=== PATIENT | female | born 1955 | race Caucasian/White ===

== ENCOUNTER → 2023-06-18 06:27 | Day surgery (SDC) | payer BC, SELFPAY | LOC: GI 06:27 | PROVIDERS: ATTENDING PHYSICIAN Internal Medicine Gastroenterology | DX: K50.00 Crohn's disease of small intestine without complications (principal); Z98.0 Intestinal bypass and anastomosis status; K57.30 Diverticulosis of large intestine without perforation or abscess without bleeding | CPT/HCPCS: 45380; 45382; 88305 ==

== ENCOUNTER → 2023-08-09 10:25 | Outpatient (REF) | payer BC, SELFPAY | LOC: MRI 3T 10:25 | PROVIDERS: ATTENDING PHYSICIAN Nurse Practitioner Family; FAMILY PHYSICIAN Internal Medicine | DX: K50.018 Crohn's disease of small intestine with other complication (principal) | CPT/HCPCS: 72197; 74183; A9575 ==

== ENCOUNTER → 2024-07-03 10:08 | Outpatient (REF) | payer BC, SELFPAY | LOC: RAD 10:08 | PROVIDERS: ATTENDING PHYSICIAN Internal Medicine Gastroenterology; FAMILY PHYSICIAN Internal Medicine | DX: R14.0 Abdominal distension (gaseous) (principal) | CPT/HCPCS: 74018 ==

== ENCOUNTER 2024-07-08 13:06 | Inpatient (IN) | payer BC, SELFPAY ==
[2024-07-08] VITALS (10 sets, daily range): BP systolic 114–149; BP diastolic 60–112; BMI 19.1
--- NOTE | 2024-07-08 08:32 | EDRN ---
Assumed care of pt at this time.
--- NOTE | 2024-07-08 08:57 | EDRN ---
Bathroom set up for stool and urine specs at this time.
[2024-07-08 09:12] LABS: % Basophils 0.3 % (0-2); % Eosinophils 0.1 % (0-6); % Immature Granulocytes 0.4 % (0-0.5); % Lymphocytes 4.9 % (20.5-51.1); % Monocytes 4.4 % (1.7-9.3); % Neutrophils 89.9 % (42.2-75.2); ALT (SGPT) 26 U/L (0-35); AST (SGOT) 37 U/L (14-36); Absolute Basophils 0.1 10^3/uL (0-0.2); Absolute Immature Granulocytes 0.1 10^3/uL (0-0.05); Absolute Lymphocytes 0.8 10^3/uL (1.2-3.4); Absolute Monocytes 0.8 10^3/uL (0.1-0.6); Absolute Neutrophils 15.4 10^3/uL (1.4-6.5); Albumin 4.3 g/dl (3.5-5.0); Alkaline Phosphatase 74 U/L (38-126); Blood Urea Nitrogen 23 mg/dl (7-17); Calcium 10.6 mg/dl (8.4-10.2); Carbon Dioxide 33 mmol/L (22-30); Chloride 100 mmol/L (98-107); Estimated Creatinine Clearance 36 ml/min; Glucose 153 mg/dl (70-99); Hematocrit 43.5 % (37.0-47.0); Hemoglobin 15.4 g/dL (12.0-16.0); Lipase 146 U/L (23-300); Mean Corp Hgb Conc. 35.4 g/dL (33.0-37.0); Mean Corpuscular Hgb 31.5 pg (27.0-31.0); Mean Platelet Volume 9.5 fL (7.4-10.4); Nucleated Red Blood Cells % 0 %; Platelet Count 320 10^3/uL (130-400); Red Blood Cell Count 4.89 10^6/uL (4.20-5.40); Red Cell Dist. Width 12.7 % (11.5-14.5); Sodium 143 mmol/L (135-145); Total Bilirubin 0.9 mg/dl (0.2-1.3); White Blood Cell Count 17.1 10^3/uL (4.8-10.8); eGFR 55.07
--- NOTE | 2024-07-08 09:32 | EDRN ---
Dr. Gray in room w/ pt at this time.
[2024-07-08] MEDS: NSS 1000 IV ×4 (09:44→23:03)
[2024-07-08] MEDS: MORPHINE SULFATE 4 MG IV (09:44)
[2024-07-08] MEDS: ZOFRAN 4 MG IV ×2 (09:44→15:54)
--- NOTE | 2024-07-08 09:54 | ED.GENMED ---
History of Present Illness
General
Chief Complaint: Abdominal Symptoms
Source: patient and family (Sister)
Exam Limitations: none
Time Seen by Provider: 07/08/24 09:05
Nursing documentation reviewed up to this point in time: agreed with
History of Present Illness
History of Present Illness:
68-year-old female with history of Crohn's disease and multiple bowel resections (on mesalamine) who presents to the emergency department for evaluation of abdominal pain with nausea and vomiting, diarrhea. Patient reports onset of symptoms
yesterday afternoon and have been constant and generally worsening since then. She reports a diffuse pain nonlocalized. Pain is consistent. No clear triggering or relieving factors. Associated with nausea and about 6 episodes of nonbloody
nonbilious vomiting. She said she has had some loose stools nonbloody. She says that she has had similar symptoms with bowel obstructions in the past but symptoms seem somewhat different today because they typically would improve after
vomiting�her symptoms have been consistent despite vomiting.
Past History
Past History
ED Past Medical History: Hypothyroidism and Other
ED Past Surgical History: Appendectomy, Bowel resection, Cholecystectomy and Other
Social History
Tobacco: Non-smoker
Alcohol: None
Personal:
Living: with family
Review of Systems
Review of Systems
All Other Systems: ROS reviewed and negative except as documented in HPI and ROS
Constitutional: Denies fever
Respiratory: Denies trouble breathing
Cardiac: Denies chest pain
ABD/GI: Reports abdominal pain, nausea, vomiting and diarrhea; Denies bloody stools
: Denies dysuria, frequency or bleeding
Musculoskeletal: Denies neck pain or back pain
Neurological: Denies headache
Phy Exam
Physical Exam
Physical Exam:
General: Awake, alert, appears uncomfortable
Head: Normocephalic, atraumatic
Eyes: Conjunctiva normal, sclera anicteric
Throat: Airway intact, handling secretions
Neck: Trachea midline, supple without meningismus
Lungs: Clear to auscultation bilaterally, no wheezing, rales, rhonchi
Heart: Tachycardia with regular rhythm, no murmurs, gallops, or rubs
Abd: Soft, mildly distended, diffuse tenderness to palpation
Neuro: No gross deficits
Skin: no rash in area of concern
Extremities: Warm and well-perfused
Scores
Heart Failure Risk
Heart Failure Risk Score: Not Applicable
Heart Score for Chest Pain Patients
STEMI patient?: Not applicable
Withdrawal Assessment of Alcohol
Withdrawal Assessment Completed?: Not applicable
Course
Orders/Labs/Results
Orders:
Orders
07/08/24 08:42
IV Insert/Care/Rem.- Treatment PRN
07/08/24 08:44
Complete Blood Count/With Diff Urgent
Comprehensive Metabolic Panel Urgent
Lipase Urgent
07/08/24 09:36
0.9% Sodium Chloride 1000 ml [Nss] 1,000 ml IV BOLUS
Morphine Sulfate 4 mg IV NOW STA
Ondansetron Injectable [Zofran] 4 mg IV NOW STA
07/08/24 09:37
Electrocardiogram (*1) Urgent
Reason for Study: Abdominal Pain
CT Abd/pelvis W Iv Cont Urgent
Comment:
Reason For Exam: abd pain, nausea, vomiting
EKG- Treatment ONCE
07/08/24 12:03
Urinalysis Reflex To Culture Urgent
Date Specimen was Collected: 07/08/24
Time Specimen was Collected: 11:52
Abnormal Lab Results
07/08/24
08:44
WBC 17.1 H 10^3/uL
(4.8-10.8)
MCH 31.5 H pg
(27.0-31.0)
Abs Immat Gran (auto) 0.1 H 10^3/uL
(0-0.05)
Absolute Neuts (auto) 15.4 H 10^3/uL
(1.4-6.5)
Absolute Lymphs (auto) 0.8 L 10^3/uL
(1.2-3.4)
Absolute Monos (auto) 0.8 H 10^3/uL
(0.1-0.6)
Neutrophils % 89.9 H %
(42.2-75.2)
Lymphocytes % 4.9 L %
(20.5-51.1)
Carbon Dioxide 33 H mmol/L
(22-30)
BUN 23 H mg/dl
(7-17)
Creatinine 1.1 H mg/dL
(0.6-1.0)
Glucose 153 H mg/dl
(70-99)
Calcium 10.6 H mg/dl
(8.4-10.2)
AST 37 H U/L
(14-36)
07/08/24 08:44
07/08/24 08:44
Vital Signs
Initial and Last Documented VS:
Initial Vital Signs
Temp Pulse Resp BP Pulse Ox
36.6 C 113 22 144/112 98
07/08/24 07:37 07/08/24 07:37 07/08/24 07:37 07/08/24 07:37 07/08/24 07:37
Last Documented Vital Signs
Temp Pulse Resp BP Pulse Ox
36.6 C 89 16 137/72 97
07/08/24 07:37 07/08/24 12:00 07/08/24 12:00 07/08/24 12:00 07/08/24 12:00
MDM/Problems Addressed
Differential Diagnosis Includes:
Crohn's flare, bowel obstruction, bowel perforation, cholelithiasis/cholecystitis, pancreatitis
MDM/Problems Addressed:
68-year-old female with history of Crohn's disease and multiple bowel surgeries presents for evaluation of abdominal pain associate with nausea/vomiting/diarrhea. She is tachycardic, hypertensive but otherwise normal vitals. Physical exam as
above. Will plan to place an IV check labs including a CBC and a CMP, lipase. Will check urinalysis. EKG for QTc monitoring. Will treat with pain medication and antiemetic. Will send for a CT abdomen pelvis. Provide IV fluids. Monitor closely
reassess after the above.
Labs reviewed: CBC does show leukocytosis to 17.1. CMP shows BRYANT with a creatinine of 1.1. CT is pending. Clinical reassessment after pain medication and antiemetic patient reports improvement in her symptoms. Her heart rate has improved with
fluids.
CT shows findings concerning for small bowel obstruction. Clinical reassessment patient is feeling much better after fluids and pain control. She does not wish to have NG tube now because she feels better�she says that she has had partial
obstructions in the past that improved with bowel rest. Will hold off for now but I explained that if her symptoms worsen she will require nasogastric tube placement. Will admit for continued management. Discussed case with hospitalist.
Chronic conditions affecting care:
Crohn's disease
Acute Exacerbation and/or Progression of Chronic Illness:
Acutely hypertensive likely pain related will treat pain but no indication for emergent antihypertensives at this point
Acute Exacerbation and/or Progression of Chronic Illness: HTN
*Radiology
Radiology exam reviewed: radiology read reviewed
*Pulse Oximetry
Patient hypoxic: no
*Critical Care Note
Total Time (30-74mins, 75-104mins- exclusive of procedures): Not Applicable
Data Reviewed
Review of Other/Old Records Reveals: Labs and Records
Source: patient, records and family
Patient Management
Discussion with other providers: Hospitalist (Discussed with hospitalist)
Escalation/DeEscalation of care consider admission/obs:
Admission indicated
ED Attending Note
-
Portions of this chart may have been created with voice recognition software.� Occasional wrong word or��sound alike� substitutions may have occurred due to the inherent limitations of voice recognition software.
Discharge Plan
Departure
Patient Disposition: Admit
Date of Disposition: 07/08/24
Time of Disposition: 12:20
Admit to doctor: Candace
Presentation/result/management discussed w/ accepting MD/DO: Hospitalist
Discharge Problem:
Small bowel obstruction, BRYANT (acute kidney injury)
Prescriptions:
No Action
latanoprost 1 DROP drops
1 drp BOTH EYES HS
loteprednol etabonate [Alrex] 1 DROP drops,suspension
1 drp BOTH EYES DAILY
levothyroxine 75 MCG tablet
75 mcg PO HS
ascorbic acid (vitamin C) [Vitamin C] 500 MG tablet
500 mg PO DAILY
docosahexaenoic acid-epa 1 CAP capsule
1 cap PO DAILY
zinc sulfate 220 MG capsule
220 mg PO DAILY
cholecalciferol (vitamin D3) 1,000 UNITS tablet
1,000 units PO DAILY
multivitamin with folic acid [Tab-A-Jairo] 1 TABLET tablet
1 tab PO DAILY
levofloxacin 500 MG tablet
500 mg PO DAILY Qty: 9 0RF
metronidazole 500 MG tablet
500 mg PO TID Qty: 29 0RF
ondansetron 4 MG tablet,disintegrating
4 mg PO Q8HPRN PRN (Reason: nausea/vomiting) Qty: 5 0RF
Referrals:
Carole Lopez MD [Family Provider] -
Interventions
Interventions:
*Risk Screen - Suicide Last Done: 07/08/24 08:35
*General Assessment Last Done: 07/08/24 08:34
*Neglect/Abuse Screening Last Done: 07/08/24 08:35
*ED- Fall Risk Assessment Last Done: 07/08/24 08:34
*ED COVID-19 Vaccine History Last Done: 07/08/24 08:34
OC-Jaczpq-Eeytqpbjrk Assessment Last Done: 07/08/24 08:45
Discharge Date and Time
Print Language: FILIPINO
--- NOTE | 2024-07-08 11:35 | EDRN ---
Pt OOB to BR to void and provide urine spec at this time.
[2024-07-08 12:21] LABS: Urine Albumin 1+ (Neg - Trace); Urine Bilirubin Negative (Negative); Urine Character Slightly Cloudy (Clear); Urine Color Yellow; Urine Glucose Negative (Negative); Urine Ketone Negative (Negative); Urine Leukocyte Negative (Negative); Urine Nitrite Negative (Negative); Urine Occult Blood Negative (Negative); Urine Urobilinogen Negative (Neg - 1+)
--- NOTE | 2024-07-08 12:28 | HPS.HSE ---
Family Physician
-
Family Physician: Carole Lopez
Chief Complaint
-
abd pain
History of Present Illness
68-year-old female with history of Crohn's disease and multiple bowel resections who complains of abdominal pain with nausea, vomiting and diarrhea starting yesterday afternoon of 07/07/2024. She reports the pain has been constant and worse since
then. She feels that this is similar to her prior bowel obstructions. In the ER she was noted to have a small bowel obstruction on CT of her abdomen. She refused NG placement at current time. She denies headache, sore throat, fever, chills,
chest pain, palpitations, cough, shortness of breath, urinary symptoms, rash. She has past medical history of Crohn's disease on mesalamine, multiple bowel resections x 4 greater than 20 years ago, history of ileostomy 30 years ago secondary to
Crohn's,, bowel obstructions 6 to 10/year, hypothyroidism.
Medical History
Past Medical History
Past Medical History: Reports Other
Additional Past Medical History:
Crohn's disease on mesalamine
multiple bowel resections x 4 greater than 20 years ago
history of ileostomy 30 years ago secondary to Crohn's
bowel obstructions 6 to 10/year
hypothyroidism.
Past Surgical History: Reports Other
Additional Past Surgical History:
History multiple bowel obstructions�bowel resections X4 >20 years ago
Right lower quadrant ileostomy 30 years ago due to Crohn's disease
Cholecystectomy
Appendectomy secondary to rupture
section�linear x 1 emergent, 2 transverse
Social History
Tobacco: Non-smoker
Alcohol: None
Drug: None
Personal:
Living: With Family ( Goldy)
Employment: Retired
Family History
Family History: Other (Patient's nephew history of Crohn's, patient's 2 cousins paternal side Crohn's)
Allergies / Home Medications
Allergies reflects when Allergies were last updated in [facility].
Home Medications with original date entered in [facility]
Allergy/Medication List:
Allergies
Allergy/AdvReac Type Severity Reaction Status Date / Time
Penicillins Allergy Hives Verified 07/08/24 07:43
Home Medications
ascorbic acid (vitamin C) 500 mg tablet (Vitamin C) 500 mg PO DAILY 01/20/21
cholecalciferol (vitamin D3) 25 mcg (1,000 unit) tablet 1,000 units PO DAILY 01/20/21
latanoprost 0.005 % eye drops 1 drp BOTH EYES HS 01/20/21
loteprednol etabonate 0.2 % eye drops,suspension (Alrex) 1 drp BOTH EYES MOFR 01/20/21
zinc sulfate 50 mg zinc (220 mg) capsule 220 mg PO DAILY 01/20/21
qpoonym-vyqpusczhkdbn-cjzfcntr 250 mg-250 mg-65 mg tablet (Excedrin Migraine) 2 tab PO DAILYPRN PRN migraine 07/08/24
hydrocortisone acetate 25 mg rectal suppository 25 mg OK DAILY 07/08/24
levothyroxine 100 mcg tablet 100 mcg PO HS 07/08/24
mesalamine 1.2 gram tablet,delayed release 1.2 g PO AC 07/08/24
naproxen sodium 220 mg capsule (Aleve) 440 mg PO DAILYPRN PRN mild pain 07/08/24
omega 3-vok-euf-fish oil 1,000 mg (120 mg-180 mg) capsule (Fish Oil) 1 cap PO DAILY 07/08/24
therapeutic multivitamin 1 tab PO DAILY 07/08/24
Review of Systems
-
History Source: Patient and Family (Sister at bedside)
A 12 point ROS was completed and negative except as noted: Yes
Constitutional: Denies Fever or Chills
EENT: Denies Sore Throat or Runny Nose
Respiratory: Denies Cough or Trouble Breathing
Abdomen/GI: Reports Abdominal Pain (Right lower quadrant), Nausea, Vomiting and Diarrhea; Denies Constipated, Bloody Stools or Black Stools
: Denies Dysuria, Frequency, Flank Pain, Incontinence, Difficulty Voiding or Urgency
Musculoskeletal: Denies Joint Pain or Edema
Skin: Denies Itching or Rash
Neurological: Denies Dizzy, Headache or Weakness
Endocrine: Reports No Symptoms
Hematologic/Lymphatic: Reports No Symptoms
Psych: Reports Calm
Physical Exam
Vital Signs
Vital Signs
Temp Pulse Resp BP Pulse Ox
97.8 F 89 16 137/72 97
07/08/24 07:37 07/08/24 12:00 07/08/24 12:00 07/08/24 12:00 07/08/24 12:00
Physical Exam
General: Conversant and Pain; No Fever or Chills
HEENT: NormoCephalic, Anicteric, [place] Conjunctivae, No Ptosis and Other (Dry oral mucosa)
Respiratory: Clear; No Wheezes, Rales or Rhonchi
Cardiac: S1/S2 and Regular Rhythm; No Murmur, Rub, Gallop or Peripheral Edema
GI: Soft, Non Distended, Tender (Right lower quadrant abdomen), No Hepatosplenomegaly and Other (Hypoactive bowel sounds right sided abdomen, normal bowel sounds left side abdomen)
Rectal: Deferred by Provider
Genito-urinary: Deferred by me
Musculoskeletal: No Clubbing, No Cyanosis and No Edema
Skin: Warm and Dry; No Rash or Jaundice
Neuro: AO x 3, No Motor Deficits, Nonfocal/grossly intact, Cranial Nerves Intact and No Sensory Deficits; No Slurred Speech, Facial Droop, Tremors or Sedated
Psych: Calm
Laboratory Results
-
07/08/24 08:44
07/08/24 08:44
Laboratory Results
Total Bilirubin 0.9 mg/dl (0.2-1.3) 07/08/24 08:44
AST 37 U/L (14-36) H 07/08/24 08:44
ALT 26 U/L (0-35) 07/08/24 08:44
Alkaline Phosphatase 74 U/L (38-126) 07/08/24 08:44
Lipase 146 U/L (23-300) 07/08/24 08:44
Data Reviewed
-
CT Scan: Report Reviewed by me
Lab Data: Labs Reviewed by me
Impression/Plan
-
Impression/plan:
Admit to [facility]
#Acute small bowel obstruction
# Hx multiple bowel obstructions requiring bowel resections
WBC 17.1 with left shift, afebrile 97.8, HR 89, 137/72
- N.p.o.
- IV NSS 1 L given in ER, continue IV NSS 125 /hr
- IV Zofran
- If persistent vomiting would reapproach NG tube placement as patient refused initially
- Consult general surgery
-Follow CBC, CMP
CT abdomen pelvis with IV contrast:
1. There are multiple dilated predominantly fluid-filled small bowel loops, which extend to the ileocolonic anastomosis in the right upper quadrant. Findings would suggest small bowel obstruction, although there does not
appear to be a high-grade narrowing at the ileocolonic anastomosis, and there is mild distention of fluid-filled right colon. The obstruction could be partially functional due to wall thickening and inflammation in this
patient with a history of Crohn's disease.
2. There is some fluid in the mesentery and within the pelvis, suggesting transudation of fluid.
3. As warranted, consideration could be given to administration of GI luminal contrast agent to assess for progression through the small bowel.
4. No evidence of free intraperitoneal air.
5. Status post cholecystectomy with no evidence for biliary ductal dilation.
# Hx of Crohn's disease
#History of right lower quadrant ileostomy 30 years ago
Patient on mesalamine
#Hypothyroidism
#CKD with 3B
Creat 1.1 prior baseline 0.9 in 2020
DVT prophylaxis
Subcu heparin
Full code
--- NOTE | 2024-07-08 12:40 | EDRN ---
Fady DIAMOND in w/ pt at this time.
--- NOTE | 2024-07-08 12:40 | W.PN.UPDATE ---
Update Note
Progress Note Update
This note serves as an addendum to the H&P by computer technician SANTIAGO
Coni ROSELYN
HPI
68F non smoker HX Crohn's disease and multiple bowel resections (on mesalamine) seen at ER
- evaluation of abdominal pain with nausea and vomiting, diarrhea
- onset of symptoms yesterday afternoon and have been constant and generally worsening since then.
- non localized diffuse pain and consistent.
- No clear triggering or relieving factors.
- Associated with nausea and about 6 episodes of nonbloody nonbilious vomiting.
- has had some loose stools nonbloody.
- similar symptoms with bowel obstructions in the past
PHX: see above
Vital Signs
Temp Pulse Resp BP Pulse Ox
97.8 F 89 16 137/72 97
07/08/24 07:37 07/08/24 12:00 07/08/24 12:00 07/08/24 12:00 07/08/24 12:00
PE
Gen: appears uncomfortable
HEENT: anicteric
Neck: supple
Lungs: CTA
Cor: RRR S1 S2
Abdomen: Soft, mildly distended, diffuse tenderness
CONTINUOUS YARN DYEING MACHINE OPERATOR: AAO3, NFND
MS: no edema
Psych: Nl affect
Data
WCC 17
CO2 33
BUN 23
Cr 1.1
eGFR 55
BG 153
Ca ++ 10.6
Pending complete UA
CT AP W Iv Cont
- multiple dilated predominantly fluid-filled small bowel loops, which extend to the ileocolonic anastomosis in the right upper quadrant.
- Findings would suggest small bowel obstruction, although there does not appear to be a high-grade narrowing at the ileocolonic anastomosis, and there is mild distention of fluid-filled right colon.
- The obstruction could be partially functional due to wall thickening and inflammation in this patient with a history of Crohn's disease.
- There is some fluid in the mesentery and within the pelvis, suggesting transudation of fluid.
-As warranted, consideration could be given to administration of GI luminal contrast agent to assess for progression through the small bowel.
-No evidence of free intraperitoneal air.
Status post cholecystectomy with no evidence for biliary ductal dilation.
No prior hospitalist admission:
ASSESSMENT & PLAN
Pending Rx reconciliation
Partial SBO pw acute N/V and abdominal pain
Pre renal BRYANT due to dehydration due to emesis s/p 1 L of NS at ER
- No evidence of free intraperitoneal air.
- HX Crohn dz
- similar to prior HX bowel obstruction
- symptoms were really well-controlled after a dose of morphine and Zofran
- was resistant to NG tube for above reasons
- if her symptoms are worsening she would require NG but held off for now.
- NPO except ice chips and IVF NS 120/H
- PRN narcotic analgesia and PRN Anti emetics
- GS consult
HX Crohn dz
- Hold mesalamine for now
Hypothyroid
- Hold LT4
DVT Px: SQH
Full code
IP MS
[2024-07-08 12:41] LABS: Urine Bacteria Few (Negative); Urine Red Blood Cell None Seen /HPF (0-2); Urine Squamous Cell 0-2 /LPF (Few)
[2024-07-08 12:42] LABS: Urine Amorphous Seen
--- NOTE | 2024-07-08 12:43 | EDRN ---
rf test technician in room w/ pt at this time.
--- NOTE | 2024-07-08 12:45 | EDRN ---
senior technical support engineer in room w/pt at this time doing med rec.
[2024-07-08 15:07] LABS: C-Reactive Protein < 5.00 mg/L (0.0-10.00)
[2024-07-08] MEDS: DILAUDID 1 MG IV (15:54)
--- NOTE | 2024-07-08 16:25 | CON.GS ---
Consultation
-
Date/Time Consultation Performed: 07/08/24 1550
Medical History
-
Chief Complaint: Abd pain with n/v
History of Present Illness:
Ms Wynn is a 68 yo female with a h/o Crohn's disease with prior bowel resections x4, recurrent sbo's, appi, devorah, c-sections x3, and partial thyroidectomy who presents with worsening abdominal pain with nausea and vomiting. She has been following
with Dr. De Jesus as an outpatient for Crohn's management and notes that over the last 6 months she has had persistent RLQ pain and is currently on mesalamine. She notes that her RLQ pain acutely worsened over the last 24-48 hours radiating across
her abdomen with nausea and vomiting which developed overnight causing her to present for evaluation. She had relief of pain after receiving analgesics in the ED but notes it is gradually coming back. Intermittent nausea is still present. She denies
fevers or chills. She denies urinary changes. Her last BM was and she notes that she has not been passing flatus. On exam, she has very minimal distention with tenderness to the RLQ.
Past Medical History
Past Medical History: Hypothyroidism and Other (Crohn's)
Past Surgical History: Appendectomy, Bowel Resection (bowel resection x4 for crohn's, including ileocolic (at [place])), Cholecystectomy, (x3) and Other (partial thyroidectomy. Colonoscopy 05/2023 with patent wyac-oj-yehj ileo-colonic
anastomosis, normal colon other than diverticulosis)
Social History
Tobacco: Non-Smoker
Alcohol: None
Personal:
Living: With Family
Family History
Family History: Cancer (GF colon ca) and Other (Crohn's paternal aunt, cousins x2 and nephew)
Allergies / Home Medications
Allergy/AdvReac Type Severity Reaction Status Date / Time
Penicillins Allergy Hives Verified 07/08/24 07:43
�Medication �Instructions �Recorded �Confirmed �Type
ascorbic acid (vitamin C) 500 mg 500 mg PO DAILY 01/20/21 07/08/24 History
tablet (Vitamin C)
cholecalciferol (vitamin D3) 25 1,000 units PO DAILY 01/20/21 07/08/24 History
mcg (1,000 unit) tablet
latanoprost 0.005 % eye drops 1 drp BOTH EYES HS 01/20/21 07/08/24 History
loteprednol etabonate 0.2 % eye 1 drp BOTH EYES MOFR 01/20/21 07/08/24 History
drops,suspension (Alrex)
zinc sulfate 50 mg zinc (220 mg) 220 mg PO DAILY 01/20/21 07/08/24 History
capsule
uwpsysj-esarksknvbbla-lokihdre 250 2 tab PO DAILYPRN PRN migraine 07/08/24 07/08/24 History
mg-250 mg-65 mg tablet (Excedrin
Migraine)
hydrocortisone acetate 25 mg 25 mg [place] DAILY 07/08/24 07/08/24 History
rectal suppository
levothyroxine 100 mcg tablet 100 mcg PO HS 07/08/24 07/08/24 History
mesalamine 1.2 gram tablet,delayed 1.2 g PO AC 07/08/24 07/08/24 History
release
naproxen sodium 220 mg capsule 440 mg PO DAILYPRN PRN mild pain 07/08/24 07/08/24 History
(Aleve)
omega 6-sfq-rit-fish oil 1,000 mg 1 cap PO DAILY 07/08/24 07/08/24 History
(120 mg-180 mg) capsule (Fish Oil)
therapeutic multivitamin 1 tab PO DAILY 07/08/24 07/08/24 History
Review of Systems
-
History Source: Patient and Family
All other systems: Negative unless noted
A 10 point review of systems was completed, and was negative except as per HPI.
Physical Exam
Vital Signs
Temp Pulse Resp BP Pulse Ox
99.1 F 75 16 114/60 97
07/08/24 15:40 07/08/24 15:40 07/08/24 15:40 07/08/24 15:40 07/08/24 15:40
07/07/24 07/08/24 07/09/24
06:59 06:59 06:59
Actual Weight 45.9 kg
Body Mass Index (BMI) 19.1
Lab Results
07/08/24 08:44
07/08/24 08:44
WBC 17.1 10^3/uL (4.8-10.8) H 07/08/24 08:44
Hgb 15.4 g/dL (12.0-16.0) 07/08/24 08:44
Hct 43.5 % (37.0-47.0) 07/08/24 08:44
Plt Count 320 10^3/uL (130-400) 07/08/24 08:44
Abs Immat Gran (auto) 0.1 10^3/uL (0-0.05) H 07/08/24 08:44
Neutrophils % 89.9 % (42.2-75.2) H 07/08/24 08:44
Data Reviewed
-
CT Scan: Image Personally Visualized and interpreted, Report Reviewed by me, Discussed with Physician, Discussed with Patient and Discussed with Family
MRI: Report Reviewed by me (07/2023: normal MR enterography)
Medical Tests (Nuc Med, Echo etc): Image Personally Visualized and interpreted, Report Reviewed by me, Discussed with Physician and Discussed with Patient
Labs: Labs Reviewed by me, Discussed with Physician, Discussed with Patient and Discussed with Family
Old Records: Reviewed
Assessment / Plan
-
68 yo female with h/o Crohn's s/p bowel resection x4 (including ileocolic resection) who has had ongoing RLQ pain x6 months with recent worsening and new onset n/v. Not passing flatus or stools since . CT imaging reviewed and consistent with
SBO secondary to inflammation (suspect Crohn's flare) vs Crohn's stricture at the distal ileum, the prior ileocolic anastomosis appears patent. Afebrile with stable vitals. Leukocytosis present.
Discussed NGT placement with patient, would recommend given ongoing nausea; however, she would like to hold off for now. Willing to reconsider if she begins vomiting again.
--Will add on CRP level to today's labs and trend
--Consult placed to gastroenterology to follow with us
--Keep NPO for bowel rest, NGT if vomiting recurs
--Analgesics/Antiemetics prn
--IVF while NPO
No plans for emergent surgery at this time, but may require if no improvement with medical management
[2024-07-08] MEDS: ASACOL, DELZICOL DR PO (17:05)
[2024-07-08] MEDS: HEPARIN 5000 UNITS SC (20:19)
[2024-07-08] MEDS: SYNTHROID 100 MCG PO (21:36)
[2024-07-08] MEDS: XALATAN OPHTHALMIC SOLUTION 1 DROP BOTH EYES (21:36)
[2024-07-09 06:00] VITALS: BMI 19.1
[2024-07-09 06:19] LABS: % Basophils 0.6 % (0-2); % Eosinophils 2.6 % (0-6); % Immature Granulocytes 0.2 % (0-0.5); % Lymphocytes 23.9 % (20.5-51.1); % Monocytes 5.1 % (1.7-9.3); % Neutrophils 67.6 % (42.2-75.2); Absolute Eosinophils 0.2 10^3/uL (0-0.7); Absolute Lymphocytes 1.6 10^3/uL (1.2-3.4); Absolute Monocytes 0.3 10^3/uL (0.1-0.6); Absolute Neutrophils 4.4 10^3/uL (1.4-6.5); Hematocrit 31.4 % (37.0-47.0); Hemoglobin 10.3 g/dL (12.0-16.0); Mean Corp Hgb Conc. 32.8 g/dL (33.0-37.0); Mean Corpuscular Hgb 30.3 pg (27.0-31.0); Mean Corpuscular Volume 92.4 fL (81.0-99.0); Mean Platelet Volume 9.8 fL (7.4-10.4); Nucleated Red Blood Cells % 0 %; Platelet Count 201 10^3/uL (130-400); White Blood Cell Count 6.5 10^3/uL (4.8-10.8)
[2024-07-09 06:38] LABS: ALT (SGPT) 16 U/L (0-35); AST (SGOT) 27 U/L (14-36); Albumin 2.7 g/dl (3.5-5.0); Alkaline Phosphatase 47 U/L (38-126); Blood Urea Nitrogen 19 mg/dl (7-17); Calcium 8.3 mg/dl (8.4-10.2); Carbon Dioxide 29 mmol/L (22-30); Chloride 110 mmol/L (98-107); Estimated Creatinine Clearance 40 ml/min; Glucose 86 mg/dl (70-99); Potassium 3.8 mmol/L (3.5-5.1); Sodium 143 mmol/L (135-145); Total Bilirubin 0.9 mg/dl (0.2-1.3); Total Protein 4.7 g/dl (6.3-8.2); eGFR > 60.00
[2024-07-09 06:43] LABS: Prealbumin (Transthyretin) 15.2 mg/dl (17.6-36.0)
[2024-07-09 07:05] VITALS: BP 123/78
[2024-07-09] MEDS: ASACOL, DELZICOL DR PO (07:56)
[2024-07-09] MEDS: NSS 1000 IV ×2 (07:57→16:42)
[2024-07-09] MEDS: HEPARIN 5000 UNITS SC ×2 (07:58→19:50)
--- NOTE | 2024-07-09 08:07 | W.PN.HOSP.TC ---
Today's Communication/Plan
-
See plan
Assessment / Plan
Assessment / Plan
Physical Exam
General: Not in acute distress
HEENT: Normocephalic
Respiratory: Clear to Auscultation Bilaterally
Cardiac: S1/S2 and Regular Rhythm
GI: Soft, Non Distended, Tender (Right lower quadrant), positive bowel sounds
Musculoskeletal: No Cyanosis and No Edema
Skin: Warm and Dry
Neuro: AAO x 3, Nonfocal/grossly intact
Psych: Calm
Assessment/Plan
68-year-old female with history of Crohn's disease (takes Meselamine and sees Dr. Dobbs outpatient) and multiple bowel resections who reported progressive abdominal pain with nausea, vomiting and diarrhea starting the day before presentation. In
the ER she was noted to have a small bowel obstruction on CT of her abdomen. She refused NG placement at current time. She denies headache, sore throat, fever, chills, chest pain, palpitations, cough, shortness of breath, urinary symptoms, rash.
She has past medical history of Crohn's disease on mesalamine, multiple bowel resections x 4 greater than 20 years ago, history of ileostomy 30 years ago secondary to Crohn's,, bowel obstructions 6 to 10/year, hypothyroidism.
#Acute small bowel obstruction associated with narrowing/thickening proximal to the ileocolic anastomosis on CT ?and adhesions?
#History of multiple bowel obstructions requiring bowel resections
- CT Abdomen Pelvis noted with multiple dilated predominantly fluid-filled small bowel loops
- Okay to advance to clear liquids as per GI and surgery
- Eventually, when diet is advanced, she will need to adhere to a strict low residue diet as an outpatient
- IV Fluids
- If persistent vomiting then consider NG tube placement as patient refused initially
- Consult general surgery and given patient has Crohns Disease, GI as well
- Pain control
#Crohn disease
#History of right lower quadrant ileostomy 30 years ago
- Continue Mesalamine
- Continue home rectal Hydrocortisone
#Hypothyroidism
- Resume home Levothyroxine
#CKD with 3B
-Creat 1.1 prior baseline 0.9 in 2020
-Monitor BMP
DVT Prophylaxis: Heparin Subq
Code Status: Full code
Anticipated Discharge: 24 - 48 hours
Subjective/Interval History
-
Date of Service: July 09, 2024
Patient was seen and examined. She reported feeling okay, no nausea or vomiting, no significant abdominal pain which has now improved.
Objective Data
-
Labs:
Laboratory Results
07/09/24
04:41
WBC 6.5
Hgb 10.3 L D
Hct 31.4 L
Plt Count 201 D
Sodium 143
Potassium 3.8
Chloride 110 H
Carbon Dioxide 29
BUN 19 H
Creatinine 1.0
Glucose 86
Calcium 8.3 L D
Total Bilirubin 0.9
AST 27
ALT 16
Alkaline Phosphatase 47
Vital Signs:
Vital Signs
Temp Pulse Resp BP Pulse Ox
97.9 F 76 16 123/78 97
07/09/24 07:05 07/09/24 07:05 07/09/24 07:05 07/09/24 07:05 07/09/24 07:05
I&O
07/08/24 07/09/24 07/10/24
06:59 06:59 06:59
Intake Total 1500 / 1500
Balance 1500 / 1500
--- NOTE | 2024-07-09 08:17 | CON.GI ---
Consultation
-
Date/Time Consultation Performed:
Performing Provider: Adin Milton MD
Reason for Consultation: abdominal pain
Medical History
Chief Complaint / HPI
Chief Complaint: abdominal pain, vomiting
History of Present Illness:
The patient is a 68-year-old female past medical history as noted with abdominal pain and vomiting. She has had multiple issues with partial small bowel obstructions over the years, thought to be secondary to adhesions after multiple surgeries in
the . She has had multiple colonoscopies and MR enterography's have not shown any significant inflammatory bowel disease, and her anastomosis is always been widely patent without signs of recurrence of Crohn's disease. More recently she has
been having some increasing similar symptoms, and yesterday in the last couple days had increasing significant bloating with vomiting. After excessive vomiting yesterday she is feeling much better today, with no further vomiting, is passing some
flatus, no significant abdominal pain, fever or chills.
Past Medical History
Past Medical History: Other (Crohn's ileitis, small bowel obstruction status post resection x 3, arthritis, thyroid cancer status post resection, migraines, B12 deficiency, hypothyroid)
Past Surgical History: Other (Partial thyroidectomy, , small bowel resection x 4 in 1979, appendectomy, cataract removal.)
Social History
Tobacco: Non-Smoker
Alcohol: None
Family History
Family History: Reviewed & Not Pertinent
Allergies / Home Medications
Allergy/AdvReac Type Severity Reaction Status Date / Time
Penicillins Allergy Hives Verified 07/08/24 07:43
�Medication �Instructions �Recorded
ascorbic acid (vitamin C) 500 mg 500 mg PO DAILY 01/20/21
tablet (Vitamin C)
cholecalciferol (vitamin D3) 25 1,000 units PO DAILY 01/20/21
mcg (1,000 unit) tablet
latanoprost 0.005 % eye drops 1 drp BOTH EYES HS 01/20/21
loteprednol etabonate 0.2 % eye 1 drp BOTH EYES MOFR 01/20/21
drops,suspension (Alrex)
zinc sulfate 50 mg zinc (220 mg) 220 mg PO DAILY 01/20/21
capsule
uftazyi-ayjdjebgxdhoa-qoyimmyl 250 2 tab PO DAILYPRN PRN migraine 07/08/24
mg-250 mg-65 mg tablet (Excedrin
Migraine)
hydrocortisone acetate 25 mg 25 mg MO DAILY 07/08/24
rectal suppository
levothyroxine 100 mcg tablet 100 mcg PO HS 07/08/24
mesalamine 1.2 gram tablet,delayed 1.2 g PO AC 07/08/24
release
naproxen sodium 220 mg capsule 440 mg PO DAILYPRN PRN mild pain 07/08/24
(Aleve)
omega 0-rqf-xdj-fish oil 1,000 mg 1 cap PO DAILY 07/08/24
(120 mg-180 mg) capsule (Fish Oil)
therapeutic multivitamin 1 tab PO DAILY 07/08/24
Review of Systems
-
All other systems: A 12 pt ROS was Negative except as stated above in HPI
Vital Signs
Temp Pulse Resp BP Pulse Ox
97.9 F 76 16 123/78 97
07/09/24 07:05 07/09/24 07:05 07/09/24 07:05 07/09/24 07:05 07/09/24 07:05
Physical Exam
Exam
General: NAD
HEENT: MMM, anicteric, no lymphadenopathy
Heart: Regular, no murmurs
Lungs: CTA bilaterally
Abdomen: Few normal normal bowel sounds, soft, no tenderness, no rebound or guarding, no masses, bruits or ascites, well-healed surgical scars
Extremeties: no edema
Skin: no rashes
Results
WBC 6.5 10^3/uL (4.8-10.8) 07/09/24 04:41
Hgb 10.3 g/dL (12.0-16.0) L D 07/09/24 04:41
Hct 31.4 % (37.0-47.0) L 07/09/24 04:41
MCV 92.4 fL (81.0-99.0) 07/09/24 04:41
Plt Count 201 10^3/uL (130-400) D 07/09/24 04:41
Absolute Neuts (auto) 4.4 10^3/uL (1.4-6.5) 07/09/24 04:41
Sodium 143 mmol/L (135-145) 07/09/24 04:41
Potassium 3.8 mmol/L (3.5-5.1) 07/09/24 04:41
Chloride 110 mmol/L (98-107) H 07/09/24 04:41
Carbon Dioxide 29 mmol/L (22-30) 07/09/24 04:41
BUN 19 mg/dl (7-17) H 07/09/24 04:41
Creatinine 1.0 mg/dL (0.6-1.0) 07/09/24 04:41
Calcium 8.3 mg/dl (8.4-10.2) L D 07/09/24 04:41
Total Bilirubin 0.9 mg/dl (0.2-1.3) 07/09/24 04:41
AST 27 U/L (14-36) 07/09/24 04:41
ALT 16 U/L (0-35) 07/09/24 04:41
Alkaline Phosphatase 47 U/L (38-126) 07/09/24 04:41
Lipase 146 U/L (23-300) 07/08/24 08:44
Diagnostic Image Results:
CT:
IMPRESSION: There are multiple dilated predominantly fluid-filled small bowel loops, which extend to the ileocolonic anastomosis in the right upper quadrant. Findings would suggest small bowel obstruction, although there does not appear to be a
high-grade narrowing at the ileocolonic anastomosis, and there is mild distention of fluid-filled right colon. The obstruction could be partially functional due to wall thickening and inflammation in this patient with a history of Crohn's disease.
There is some fluid in the mesentery and within the pelvis, suggesting transudation of fluid.
As warranted, consideration could be given to administration of GI luminal contrast agent to assess for progression through the small bowel.
No evidence of free intraperitoneal air.
Status post cholecystectomy with no evidence for biliary ductal dilation.
Prior GI Procedures:
EGD:
Colonoscopy:
05/2023:
Findings:
The perianal and digital rectal examinations were normal.
The terminal ileum appeared normal. Biopsies were taken with a cold
forceps for histology.
There was evidence of a prior pwjm-kx-wjvh ileo-colonic anastomosis in
the cecum. This was patent.
The colon (entire examined portion) was significantly tortuous.
Advancing the scope required using manual pressure.
Normal mucosa was found in the entire colon. Biopsies were taken with a
cold forceps for histology. For hemostasis, one hemostatic clip was
successfully placed.
A few small-mouthed diverticula were found in the sigmoid colon and
descending colon.
No additional abnormalities were found on retroflexion.
Assessment / Plan
-
1. Small bowel obstruction: Secondary to adhesions, with no signs of recurrent Crohn's over many years including multiple MR enterography's and colonoscopy including last year with widely patent anastomosis. She is feeling much better today, with
benign exam, return of bowel sounds and flatus and no further vomiting. At this point we will start clear liquids. She has dealt with these obstructive symptoms for many years and knows her symptoms well, we discussed holding on advancing diet
until she is feeling ready, and then would adhere to a strict low residue diet as an outpatient.
-
-
Thank you for consultation and allowing me to participate in the patient's care. Please call the director of retention GI physician during the after hours with any questions or concerns.
--- NOTE | 2024-07-09 10:00 | CM ---
Reviewed the chart notes and spoke with the patient at the bedside. Patient resides with her spouse in a two story home with two steps to enter. The patient reports no DME/VN/SNF in the past. The patient confirmed her pharmacy at this time is
[facility], but will need to switch due to it closing. Patient wants to switch to a [facility] pharmacy, but could not recall address. Patient on a clear liquid diet. CM continues to be available to patient/family and is monitoring
medical plan for needs at discharge.
Plan: Discharge plans will depend on the patient's progress.
--- NOTE | 2024-07-09 12:01 | W.PN.CRS1 ---
Today's Communication / Plan
-
Trial of clears
Assessment/Plan
-
68 yo female with h/o Crohn's and bowel resections x4 presenting with worsening baseline abd pain with n/v. SBO with small bowel distention associated with narrowing/thickening proximal to the ileocolic anastomosis on CT: differential for etiology
includes inflammatory, fibrostenotic, adhesive; normal CRP on presentation makes inflammatory narrowing seem less likely.
GI following with us, no steroid recommended at this time
Thus far she feels some improvement in symptoms
AFVSS
Labs stable although slight rise in CRP which was initially normal
--Trial of clears
--IVF until tolerating diet
--Analgesic/Antiemetics
Subjective Data
Subjective Data
Date of Service: July 09, 2024
Patient seen and examined at bedside with Dr. Marcelino. Denies n/v. Feels much better today. No pain to her abdomen unless it is palpated. Passed flatus once.
Objective Data
-
Vital Signs
Temp Pulse Resp BP Pulse Ox
97.9 F 76 16 123/78 97
07/09/24 07:05 07/09/24 07:05 07/09/24 07:05 07/09/24 07:05 07/09/24 07:05
Intake & Output
07/08/24 07/09/24 07/10/24
06:59 06:59 06:59
Intake Total 1500 / 1500
Balance 1500 / 1500
Intake:
IV fluids (Total) 1500 / 1500
Lab Results
07/09/24 04:41
07/09/24 04:41
Physical Exam
-
General: No Acute Distress
HEENT: Grossly Normal
Abdomen: Soft, Non Distended and Tender (RLQ)
Skin: Warm and Dry
[2024-07-09] MEDS: ASACOL, DELZICOL DR 1200 MG PO ×2 (14:54→17:42)
[2024-07-09] MEDS: VITAMIN D3 (cholecalciferol) 25 MCG PO (14:54)
[2024-07-09 15:00] VITALS: BP 140/86
[2024-07-09] MEDS: XALATAN OPHTHALMIC SOLUTION 1 DROP BOTH EYES (22:26)
[2024-07-09] MEDS: SYNTHROID 100 MCG PO (22:26)
[2024-07-09 22:32] VITALS: BP 128/76
--- NOTE | 2024-07-10 05:56 | W.PN.GI.CBS2 ---
Today's Communication / Plan
-
Please see assessment and plan for details.
Assessment / Plan
-
1. Small bowel obstruction: Secondary to adhesions, with no signs of recurrent Crohn's over many years including multiple MR enterography's and colonoscopy including last year with widely patent anastomosis. She is feeling much better today, with
benign exam, and tolerating clears without difficulty. At this point we will advance to full liquid diet, and if tolerating would be okay to DC from GI standpoint as she has dealt with these obstructive symptoms for many years and knows her
symptoms well, we discussed holding on advancing diet until she is feeling ready, and then would adhere to a strict low residue diet as an outpatient.
Subjective
Subjective
Date of Service: July 10, 2024
Patient feeling much better overall, tolerated clears without difficulty, no vomiting, is having bowel movements. Still with lower abdominal discomfort which is normal for her.
Objective
Data Reviewed
Laboratory Data:
Laboratory Results
Total Bilirubin 0.9 mg/dl (0.2-1.3) 07/09/24 04:41
AST 27 U/L (14-36) 07/09/24 04:41
ALT 16 U/L (0-35) 07/09/24 04:41
Alkaline Phosphatase 47 U/L (38-126) 07/09/24 04:41
Lipase 146 U/L (23-300) 07/08/24 08:44
Vital Signs and I&O:
Vital Signs
Temp Pulse Resp BP Pulse Ox
97.7 F 67 16 128/76 98
07/09/24 22:32 07/09/24 22:32 07/09/24 22:32 07/09/24 22:32 07/09/24 22:32
I&O
07/08/24 07/09/24 07/10/24
06:59 06:59 06:59
Intake Total 1500 / 1500 2460 / 2460
Balance 1500 / 1500 2460 / 246
Physical Exam
Physical Exam
General: NAD
Abdomen: normal bowel sounds, soft, mild lower abdominal tenderness, no rebound, no masses or bruits, no ascites
[2024-07-10 06:25] LABS: % Basophils 0.5 % (0-2); % Eosinophils 4.3 % (0-6); % Immature Granulocytes 0.3 % (0-0.5); % Lymphocytes 36.4 % (20.5-51.1); % Neutrophils 51.5 % (42.2-75.2); Absolute Eosinophils 0.2 10^3/uL (0-0.7); Absolute Lymphocytes 1.4 10^3/uL (1.2-3.4); Absolute Monocytes 0.3 10^3/uL (0.1-0.6); Absolute Neutrophils 1.9 10^3/uL (1.4-6.5); Hematocrit 31.5 % (37.0-47.0); Hemoglobin 10.8 g/dL (12.0-16.0); Mean Corp Hgb Conc. 34.3 g/dL (33.0-37.0); Mean Corpuscular Hgb 30.9 pg (27.0-31.0); Mean Corpuscular Volume 90.3 fL (81.0-99.0); Mean Platelet Volume 9.9 fL (7.4-10.4); Nucleated Red Blood Cells % 0 %; Platelet Count 186 10^3/uL (130-400); Red Blood Cell Count 3.49 10^6/uL (4.20-5.40); Red Cell Dist. Width 12.2 % (11.5-14.5); White Blood Cell Count 3.7 10^3/uL (4.8-10.8)
[2024-07-10 06:54] LABS: ALT (SGPT) 17 U/L (0-35); AST (SGOT) 28 U/L (14-36); Albumin 3.1 g/dl (3.5-5.0); Alkaline Phosphatase 52 U/L (38-126); Blood Urea Nitrogen 8 mg/dl (7-17); Calcium 8.6 mg/dl (8.4-10.2); Carbon Dioxide 27 mmol/L (22-30); Chloride 109 mmol/L (98-107); Estimated Creatinine Clearance 49 ml/min; Glucose 87 mg/dl (70-99); Magnesium 1.6 mg/dl (1.6-2.3); Potassium 3.7 mmol/L (3.5-5.1); Sodium 140 mmol/L (135-145); Total Bilirubin 0.7 mg/dl (0.2-1.3); Total Protein 5.2 g/dl (6.3-8.2); eGFR > 60.00
[2024-07-10 07:01] VITALS: BP 138/72
[2024-07-10] MEDS: ASACOL, DELZICOL DR 1200 MG PO ×2 (08:21→11:39)
[2024-07-10] MEDS: HEPARIN 5000 UNITS SC (08:22)
[2024-07-10] MEDS: VITAMIN D3 (cholecalciferol) 25 MCG PO (08:23)
--- NOTE | 2024-07-10 08:57 | W.PN.CRS1 ---
Today's Communication / Plan
-
As below
Assessment/Plan
-
68-year-old female with PMH of Crohn's (first diagnosed at 21 years old, unsure of prior medications but has needed steroids for flares; s/p 4 bowel resections including ileocolic resection and revision as well as other areas of small bowel; follows
with [facility] and currently on mesalamine; prior surgeries done at [place]) who presented for worsening abdominal pain associated with nausea and vomiting since 2 AM on day of admission. She has been having worsening right-sided abdominal pain for
the last [address] Dobbs for this. Her differential included pain due to adhesions versus SIBO and had ordered a workup with stool studies and blood work, which hadn't been completed yet. In the ED, WBC 17.1, CT scan showing
small bowel obstruction, with narrowing seen at the anastomosis associated with thickening, but distention noted proximal and distal to anastomosis. She was admitted and has been treated nonoperatively with bowel rest and IVF.
AFVSS
WBC 3.7, Hb stable, CRP 7.5 from 16.3, prealbumin 15.2, albumin 4.3
�Small bowel distention associated with mild narrowing/thickening of the ileocolic anastomosis, but with distention noted proximally and distally
�Appreciate GI; not concerned for anastomotic stricture due to findings on last colonoscopy; no indication for steroids at this time; recommending against surgery at this point
�Diet per GI
�Continue DVT PPx with SQH
� Encourage IS/OOB
�Appreciate hospitalist
Dispo�colorectal to sign off; provided patient with my information for any follow-up with surgery needed
Subjective Data
Subjective Data
Date of Service: July 10, 2024
No issues overnight. Denies nausea/vomiting and tolerated fulls well, having bowel function.
Pain in the RLQ is persistent but controlled.
Objective Data
-
Vital Signs
Temp Pulse Resp BP Pulse Ox
97.8 F 69 16 138/72 99
05/12/25 07:01 07/10/24 07:01 07/10/24 07:01 07/10/24 07:01 07/10/24 07:01
Intake & Output
07/09/24 07/10/24 07/11/24
06:59 06:59 06:59
Intake Total 1500 / 1500 3200 / 3200
Balance 1500 / 1500 3200 / 3200
Intake:
Oral fluids 1200 / 1200
IV fluids (Total) 1500 / 1500 2000 / 2000
Other:
Number of approximated MODERATE 3
amounts of urine
Lab Results
07/10/24 05:33
07/10/24 05:33
Physical Exam
-
General: No Acute Distress and AOx3
HEENT: Grossly Normal
Abdomen: Soft, Non Distended, Tender (Mildly to moderately tender in the RLQ (stable/improved)), No Guarding and No Rebound
Skin: Warm and Dry
--- NOTE | 2024-07-10 10:28 | W.PN.HOSP.TC ---
Addendum entered and electronically signed by Catrachita Hurt MD 07/10/24 15:48:
total DC time 40 min
Original Note:
Today's Communication/Plan
-
advance diet to low residue
DC today
Assessment / Plan
Assessment / Plan
68-year-old female with history of Crohn's disease (takes Meselamine and sees Dr. Dobbs outpatient) and multiple bowel resections x 4 greater than 20 years ago, history of ileostomy 30 years ago secondary to Crohn's, hypothyroidism; who reported
progressive abdominal pain with nausea, vomiting and diarrhea starting the day before presentation.
In the ER, she was noted to have a small bowel obstruction on CT of her abdomen. Refused NGT placement.
A/P:
# Acute small bowel obstruction associated with narrowing/thickening proximal to the ileocolic anastomosis 2/2 adhesions
# History of multiple bowel obstructions requiring bowel resections
CT AP noted multiple dilated predominantly fluid-filled small bowel loops
Diet advanced to full liquid for breakfast which pt tolerated well, advance further to low residue for lunch
Informed pt that she will need to adhere to a strict low residue diet as an outpatient
Limit narcotic Dilaudid for pain control
# Crohn disease
# History of right lower quadrant ileostomy 30 years ago
Continue Mesalamine
Continue home rectal Hydrocortisone
# Hypothyroidism
Resumed home Levothyroxine
# ruled out CKD
SCr today 0.8
DVT Prophylaxis: Heparin Subq
Code Status: Full code
DW GI
Anticipated Discharge: Today
Subjective/Interval History
-
Date of Service: July 10, 2024
Objective Data
-
Labs:
Laboratory Results
07/10/24
05:33
WBC 3.7 L
Hgb 10.8 L
Hct 31.5 L
Plt Count 186
Sodium 140
Potassium 3.7
Chloride 109 H
Carbon Dioxide 27
BUN 8
Creatinine 0.8
Glucose 87
Calcium 8.6
Total Bilirubin 0.7
AST 28
ALT 17
Alkaline Phosphatase 52
Vital Signs:
Vital Signs
Temp Pulse Resp BP Pulse Ox
36.6 C 69 16 138/72 99
07/10/24 07:01 07/10/24 07:01 07/10/24 07:01 07/10/24 07:01 07/10/24 07:01
I&O
07/09/24 07/10/24 07/11/24
06:59 06:59 06:59
Intake Total 1500 / 1500 3200 / 3200
Balance 1500 / 1500 3200 / 3200
Review of Systems
-
History Source: Patient
All other systems: Reviewed and negative
Abdomen/GI: Denies Abdominal Pain
Physical Exam
-
General: Well Developed, Well Nourished, No Apparent Distress, Comfortable and Conversant; Negative Respiratory Distress
HEENT: Normocephalic, Atraumatic, Nose Appears Normal and Ears Appear Normal; Negative Oxygen
Respiratory: Clear to Auscultation and Non Labored Respirations; Negative Accessory Resp Muscle Use
Cardiac: Regular Rhythm and S1/S2
GI: Soft, Nontender, Nondistended and Normal Bowel Sounds
Skin: Warm and Dry
Neuro: Awake, Alert, Oriented, AO x 3 and Nonfocal/Grossly Intact
Psych: Calm and Intact Judgement/Insight
Data Reviewed
-
Labs: Labs Reviewed by me
--- NOTE | 2024-07-10 12:03 | CM ---
CM following re: discharge planning.
Reviewed pt's chart, met with pt.
Discharge order noted.
Pt is aware, expressed her agreement and pt stated her is coming to transport home. Pt reports she is independent in all areas [employer].
No after care VN services indicated.
D/C plan: home no needs. to transport.
[2024-07-10 13:36] VITALS: BP 146/75
--- NOTE | 2024-07-10 15:36 | W.DCSUMMARY ---
Discharge Summary
Discharge Data
Date of Admission: 07/08/24
Date of Discharge: 07/10/24
-
Pending Results: No
Hospital Course
Principal Diagnosis:
Acute small bowel obstruction associated with narrowing/thickening proximal to the ileocolic anastomosis 2/2 adhesions
Chronic Diagnoses:�
Crohn disease (takes Meselamine and sees Dr. Dobbs outpatient)
History of ileostomy 30 years ago secondary to Crohn's
History of multiple bowel obstructions requiring bowel resections
Hypothyroidism
Consultations:�
Gastroenterology
Colorectal surgery
Procedures:�
None
Clinical course:�
This is a 68-year-old female with past medical history as stated above, who presented with abdominal pain with nausea, vomiting and diarrhea.
In the ER, she was noted to have a small bowel obstruction on CT scan.
Problem 1:
Acute small bowel obstruction associated with narrowing/thickening proximal to the ileocolic anastomosis 2/[address] AP noted multiple dilated predominantly fluid-filled small bowel loops.
Her diet was advanced to low residue which she tolerated well prior to discharge.
She has been informed to adhere to a strict low residue diet going forward.
As for the rest of her medical problems, they were stable during her hospital stay.
Discharge Plan
-
Patient Disposition: Home (Routine Discharge)
Discharge Diagnosis/Procedures: Acute small bowel obstruction associated with narrowing/thickening proximal to the ileocolic anastomosis due to adhesions;
History of multiple bowel obstructions requiring bowel resections
Condition: Good
Diet: As tolerated and Low Residue
Additional Diets: No roughage in diet
Activity: As tolerated
Driving Restrictions: As prior to admission
Referrals:
Carole Lopez MD [Family Provider] - in less than 1 week
Prescriptions:
Continued
latanoprost 1 DROP drops
1 drp BOTH EYES HS
loteprednol etabonate [Alrex] 1 DROP drops,suspension
1 drp BOTH EYES MOFR
ascorbic acid (vitamin C) [Vitamin C] 500 MG tablet
500 mg PO DAILY
zinc sulfate 220 MG capsule
220 mg PO DAILY
cholecalciferol (vitamin D3) 1,000 UNITS tablet
1,000 units PO DAILY
therapeutic multivitamin Tablet
1 tab PO DAILY
hydrocortisone acetate 25 mg suppository
25 mg NM DAILY
levothyroxine 100 mcg Tablet
100 mcg PO HS
Excedrin Migraine 250-250-65 mg Tablet
2 tab PO DAILYPRN PRN (Reason: migraine)
mesalamine 1.2 gram tablet,delayed release (DR/EC)
1.2 g PO AC
omega [id number]-erw-ubq-fish oil [Fish Oil] 1,000 (120-180) mg Capsule
1 cap PO DAILY
naproxen sodium [Aleve] 220 mg Capsule
440 mg PO DAILYPRN PRN (Reason: mild pain)
Discharge Orders:
Discharge Patient (As Directed); Ordered 07/10/24
Ordered By: aCtrachita Hurt
Discharge Date and Time
Discharge Date/Time: 07/10/24 14:18
Print Language: SWEDISH
== END 2024-07-10 14:18 | disposition home or self-care (01) | DRG 386 ==
LOC: 2 SOUTH 13:06
PROVIDERS: Clinical Nurse Specialist Family Health; Emergency Medicine; ADMITTING PHYSICIAN Internal Medicine; ATTENDING PHYSICIAN Internal Medicine; CONSULT PHYSICIAN Internal Medicine Gastroenterology; CONSULT PHYSICIAN Surgery; EMERGENCY PHYSICIAN Emergency Medicine; FAMILY PHYSICIAN Internal Medicine
DX: K50.012 Crohn's disease of small intestine with intestinal obstruction (principal); K56.51 Intestinal adhesions [bands], with partial obstruction; E03.9 Hypothyroidism, unspecified; Z79.899 Other long term (current) drug therapy; Z80.0 Family history of malignant neoplasm of digestive organs
CPT/HCPCS: 74177; 80053; 81003; 81015; 83690; 83735; 84134; 85025; 86140; 93005; 96361; 96374; 96375; 99285; Q9967

== ENCOUNTER 2024-12-03 10:38 | Inpatient (IN) | payer BC, SELFPAY ==
[2024-12-03 06:28] VITALS: BP 119/81
--- NOTE | 2024-12-03 06:47 | ED.GENMED ---
History of Present Illness
General
Chief Complaint: Abdominal Pain
Time Seen by Provider: 12/03/24 06:47
History of Present Illness
History of Present Illness:
FOCUSED PAST MEDICAL HISTORY
- Crohn's, has had bowel obstruction, hypothyroidism, had ileostomy 30 years ago secondary to Crohn's and has had multiple bowel obstructions requiring resection.
REVIEW OF OLD RECORDS
- I reviewed records, the patient was admitted here in June 2024 with an acute small bowel obstruction with narrowing proximal to the ileocolic anastomosis secondary to a
Note:
CHIEF COMPLAINT(S)
Abdominal pain and possible bowel obstruction.
HISTORY OF PRESENT ILLNESS
The patient is a 69-year-old female with a history of Crohns disease and previous bowel surgeries, including an ileostomy and bowel resections. She presents with a four-day history of constant abdominal pain. The patient describes a pattern of
partial bowel obstructions and indicates that the current episode may be similar. She reports no vomiting thus far, which is typically indicative to her of a complete obstruction, but acknowledges experiencing pain that she rates as severe. She
notes a possible low-grade fever and admits to constant diarrhea, which is a chronic symptom for her. The patient regularly takes mesalamine for Crohns disease management and was recently transferred to the care of Dr. Dobbs, a store management trainee.
She mentioned the previous use of oral contrast during diagnostic imaging, which she believes she can tolerate again.
CHRONIC MEDICAL CONDITIONS SIGNIFICANTLY AFFECTING CARE
Crohns disease with history of ileostomy and bowel resections.
MEDICATIONS
Mesalamine.
PHYSICAL EXAM
General: The patient appears uncomfortable.
Abdomen: Mild to moderate diffuse abdominal tenderness upon examination.
- HEENT: Moist oral mucosa
- Cardiovascular: No murmurs, normal heart rate, regular rhythm, No chest wall tenderness
- Pulmonary: No respiratory distress, breath sounds are clear and equal
- Neurologic: Excellent strength all extremities, no coordination deficits
- Psychiatric: Appropriate mental status, normal insight and judgement
- Extremities: Nontender, no edema, moves all extremities equally
- Skin: No rash, no lesions
PROBLEM LIST
- Acute abdominal pain with possible partial bowel obstruction.
PLAN
1. Order a computed tomography scan with the possibility of using oral contrast to better delineate intestinal structures, provided the patient can tolerate it.
2. Administer pain relief with consideration to past drug reactions, specifically evaluating the use of Dilaudid after reviewing the patients chart for previous allergic reactions.
3. Monitor patient vital signs closely and assess the need for further interventions depending on the scan results.
DIFFERENTIAL DIAGNOSIS
The Differential Diagnosis includes, in no particular order and is not limited to:
1. Partial bowel obstruction
2. Complete bowel obstruction
3. Crohns disease exacerbation
4. Gastroenteritis
5. Small bowel inflammation
6. Perforated diverticulum
7. Mesenteric ischemia
8. Hernia complications
9. Intestinal adhesions
10. Colitis
RADIOLOGY
- CT imaging obtained with oral and IV contrast which shows advanced inflammatory changes of the sigmoid which could represent diverticulitis but given the history the possibility of Crohn's colitis cannot be excluded
LABS
- White blood cell count 11.6, C-reactive protein is 72, mild T. bili elevation but alk phos and transaminases normal, otherwise chemistries unremarkable
UPDATE
-SUMMARY OF ENCOUNTER
The patient, a 69-year-old female with a history of Crohns disease, presented to the emergency department with severe and constant abdominal pain lasting four days. Upon examination, there was no indication of a bowel obstruction, but inflammatory
markers were elevated, and imaging showed notable inflammation around the sigmoid colon. This inflammation was considered possibly related to diverticulitis or Crohns colitis. Given the patients significant pain and history of ileum resection, which
has resulted in narrowing, the decision was made to admit her for further management of her symptoms, including starting IV antibiotics.
DISPOSITION
Admit.
ASSESSMENT
The patients severe abdominal pain is likely due to inflammation of the sigmoid colon, related either to diverticulitis or Crohns disease.
EMERGENCY TREATMENTS ADMINISTERED
Initiation of IV antibiotics was planned due to the presence of significant abdominal inflammation and pain.
MANAGEMENT OF THE PATIENTS CARE WAS DISCUSSED WITH
Discussion was held with the hospitalist regarding the need to admit the patient for inpatient management, including IV antibiotics.
PLAN
The patient will be admitted to the hospital for closer monitoring and management. The plan includes initiation of IV antibiotics to manage the inflammation and control the severe pain that the patient is experiencing. Further evaluation of the
narrowing at the ileum site from previous bowel resection will be considered during the admission.
INDEPENDENT REVIEW OF LABS AND INTERPRETATION OF TESTS
- My independent review of the CBC indicates an elevated white blood cell count, consistent with inflammation.
- My independent review of inflammatory markers indicates an elevated C-reactive protein (CRP) at 72, which is typical in Crohns disease exacerbation.
- My independent interpretation of the abdominal CT scan reveals significant inflammation around the sigmoid colon but no signs of bowel obstruction.
MEDICAL DECISION MAKING
-Number and Complexity of Problems Addressed: Chronic conditions affecting care include Crohns disease with a history of ileostomy and bowel resections.
Differential diagnosis considerations include:
1. Partial bowel obstruction
2. Complete bowel obstruction
3. Crohns disease exacerbation
4. Gastroenteritis
5. Small bowel inflammation
6. Perforated diverticulum
7. Mesenteric ischemia
8. Hernia complications
9. Intestinal adhesions
10. Colitis
-Data:
- Category 1: The CBC was reviewed, showing leukocytosis. The inflammatory marker CRP was elevated. A CT scan was independently interpreted, revealing significant inflammation without obstruction.
- Category 3: Discussion of management with the hospitalist regarding the decision to admit the patient for IV antibiotic treatment and further evaluation.
-Risk: The decision to admit the patient was based on the severity of symptoms and the need for IV antibiotics, indicating a high risk of complications if untreated.
DIAGNOSIS
- Crohns disease with sigmoid colon inflammation (ICD-10: K50.814)
- Abdominal pain, unspecified (ICD-10: R10.9)
Past History
Past History
ED Past Medical History: Hypothyroidism and Other
ED Past Surgical History: Appendectomy, Bowel resection, Cholecystectomy and Other
Social History
Tobacco: Non-smoker
Alcohol: None
Personal:
Living: with family
Phy Exam
Physical Exam
Physical Exam:
See HPI
Course
Orders/Labs/Results
Orders:
Orders
12/03/24 06:49
0.9% Sodium Chloride 1000 ml [Nss] 1,000 ml IV BOLUS
12/03/24 06:50
Iohexol [Omnipaque] See Protocol PO NOW STA
12/03/24 06:53
CT Abd/pel W Iv And Oral Contr Urgent
Comment:
Reason For Exam: Crohn's, increasing pain
12/03/24 06:54
HYDROmorphone [Dilaudid] 0.5 mg IV NOW STA
Ondansetron Injectable [Zofran] 4 mg IV NOW STA
12/03/24 07:14
CRP [C-Reactive Protein] Urgent
Complete Blood Count/With Diff Urgent
Comprehensive Metabolic Panel Urgent
Lipase Urgent
12/03/24 10:02
Ciprofloxacin 400 mg/[id number] [Cipro 400 mg] 200 ml IV NOW
MetroNIDAZOLE 500 MG/100 ML [Flagyl 500 mg] 100 ml IV NOW
12/03/24 10:05
HYDROmorphone [Dilaudid] 0.5 mg IV NOW STA
Abnormal Lab Results
12/03/24
07:14
WBC 11.6 H 10^3/uL
(4.8-10.8)
Abs Immat Gran (auto) 0.1 H 10^3/uL
(0-0.05)
Absolute Neuts (auto) 9.4 H 10^3/uL
(1.4-6.5)
Absolute Monos (auto) 0.8 H 10^3/uL
(0.1-0.6)
Neutrophils % 80.8 H %
(42.2-75.2)
Lymphocytes % 10.9 L %
(20.5-51.1)
Glucose 118 H mg/dl
(70-99)
Total Bilirubin 1.6 H mg/dl
(0.2-1.3)
C-Reactive Protein 72.40 H mg/L
(0.0-10.00)
12/03/24 07:14
12/03/24 07:14
Vital Signs
Initial and Last Documented VS:
Initial Vital Signs
Temp Pulse Resp BP Pulse Ox
37.0 C 111 20 119/81 96
12/03/24 06:28 12/03/24 06:28 12/03/24 06:28 12/03/24 06:28 12/03/24 06:28
Last Documented Vital Signs
Temp Pulse Resp BP Pulse Ox
37.0 C 111 20 119/81 96
12/03/24 06:28 12/03/24 06:28 12/03/24 06:28 12/03/24 06:28 12/03/24 06:49
*Pulse Oximetry
SaO2: 96
Oxygen Mode of Delivery: Room air
Patient hypoxic: no
*Critical Care Note
Total Time (30-74mins, 75-104mins- exclusive of procedures): Not Applicable
ED Attending Note
-
Portions of this chart may have been created with voice recognition software.� Occasional wrong word or��sound alike� substitutions may have occurred due to the inherent limitations of voice recognition software.
Discharge Plan
Departure
Patient Disposition: Admit
Date of Disposition: 12/03/24
Time of Disposition: 10:07
Presentation/result/management discussed w/ accepting MD/DO: Hospitalist
Patient with high blood pressure during this ER visit?: Yes
Discharge Problem:
Crohn's colitis
Prescriptions:
No Action
latanoprost 1 DROP drops
1 drp BOTH EYES HS
loteprednol etabonate [Alrex] 1 DROP drops,suspension
1 drp BOTH EYES MOFR
ascorbic acid (vitamin C) [Vitamin C] 500 MG tablet
500 mg PO DAILY
zinc sulfate 220 MG capsule
220 mg PO DAILY
cholecalciferol (vitamin D3) 1,000 UNITS tablet
1,000 units PO DAILY
therapeutic multivitamin Tablet
1 tab PO DAILY
hydrocortisone acetate 25 mg suppository
25 mg CO DAILY
levothyroxine 100 mcg Tablet
100 mcg PO HS
Excedrin Migraine 250-250-65 mg Tablet
2 tab PO DAILYPRN PRN (Reason: migraine)
mesalamine 1.2 gram tablet,delayed release (DR/EC)
1.2 g PO AC
omega 2-tnf-spj-fish oil [Fish Oil] 1,000 (120-180) mg Capsule
1 cap PO DAILY
naproxen sodium [Aleve] 220 mg Capsule
440 mg PO DAILYPRN PRN (Reason: mild pain)
Referrals:
Carole Lopez MD [Family Provider, Internal Medicine]
Interventions
Interventions:
*Risk Screen - Suicide Last Done: 12/03/24 06:28
*General Assessment Last Done: 12/03/24 06:28
*Neglect/Abuse Screening Last Done: 12/03/24 06:28
Discharge Date and Time
Print Language: CUBAN
[2024-12-03 07:05] VITALS: BMI 18.8
[2024-12-03] MEDS: ZOFRAN 4 MG IV (07:09)
[2024-12-03] MEDS: DILAUDID 0.5 MG IV ×2 (07:09→10:48)
[2024-12-03] MEDS: NSS 1000 IV ×2 (07:12→18:27)
[2024-12-03] MEDS: OMNIPAQUE 50 ML PO (07:19)
[2024-12-03 07:27] LABS: Hematocrit 38.1 % (37.0-47.0); Hemoglobin 12.8 g/dL (12.0-16.0); Mean Corp Hgb Conc. 33.6 g/dL (33.0-37.0); Mean Corpuscular Volume 90.7 fL (81.0-99.0); Nucleated Red Blood Cells % 0 %; Platelet Count 202 10^3/uL (130-400); Red Cell Dist. Width 12.3 % (11.5-14.5)
[2024-12-03 07:39] LABS: ALT (SGPT) 23 U/L (0-35); AST (SGOT) 28 U/L (14-36); Albumin 4.1 g/dl (3.5-5.0); Alkaline Phosphatase 78 U/L (38-126); Blood Urea Nitrogen 16 mg/dl (7-17); Calcium 9.2 mg/dl (8.4-10.2); Carbon Dioxide 26 mmol/L (22-30); Chloride 104 mmol/L (98-107); Estimated Creatinine Clearance 43 ml/min; Glucose 118 mg/dl (70-99); Lipase 98 U/L (23-300); Potassium 4.2 mmol/L (3.5-5.1); Sodium 137 mmol/L (135-145); Total Protein 6.9 g/dl (6.3-8.2); eGFR > 60.00
[2024-12-03 07:42] LABS: C-Reactive Protein 72.40 mg/L (0.0-10.00)
--- NOTE | 2024-12-03 10:15 | HPS.HSE ---
Family Physician
-
Family Physician: Carole Lopez
Chief Complaint
-
Abdominal pain and fever
History of Present Illness
Stacey is s 69yo F with PMHx significant for Chron's disease, s/p multiple bowel resections, yamile's thyroiditis - hypothyroidism,Glaucoma presents to the hospital for evaluation of intractable abdominal pain. Patient states that she has had
multiple episodes of Crohn flares, SBO, partial SBO and she knows the difference between each pain. She describes this pain as much worse, constant nagging dull 10/10 pain in comparison to SBO and PSBO and nonradiating. Her pain started about 5
days ago in the left lower quadrant, then progressively worsened towards the right lower quadrant and right upper quadrant. She reports to have multiple episodes of diarrhea which is her usual baseline with known Crohn's disease. She also has some
associated fevers in the last 4 days with a Tmax of 102.9. Patient did some Tylenol to help elevate her fever.
She denies having nausea, emesis, hematochezia, melena, chest pain, dyspnea on exertion, palpitations, orthopnea, PND. She denies being around sick people, recent course of antibiotics in the last 3 months, and being in SNF in the last 6 months.
Of note her most recent hospitalization was for small bowel obstruction on 07/23/2024 at [facility]. Patient follows Dr. Dobbs on outpatient basis for Crohn's.
Medical History
Past Medical History
Past Medical History: Reports Other (Crohn's disease on mesalamine multiple bowel resections x 4 greater than 20 years ago history of ileostomy 30 years ago secondary to Crohn's bowel obstructions 6 to 10/year hypothyroidism.)
Past Surgical History: Reports Other (History multiple bowel obstructions-bowel resections X4 >20 years ago Right lower quadrant ileostomy 30 years ago due to Crohn's disease Cholecystectomy Appendectomy secondary to rupture section-linear
x 1 emergent, 2 transverse)
Social History
Tobacco: Non-smoker
Alcohol: None
Drug: None
Personal:
Living: With Family
Employment: Retired
Family History
Family History: Other (Patient's nephew history of Crohn's, patient's 2 cousins paternal side Crohn's)
Allergies / Home Medications
Allergies reflects when Allergies were last updated in [facility].
Home Medications with original date entered in [facility]
Allergy/Medication List:
Allergies
Allergy/AdvReac Type Severity Reaction Status Date / Time
Penicillins Allergy Hives Verified 07/08/24 07:43
Home Medications
ascorbic acid (vitamin C) 500 mg tablet (Vitamin C) 500 mg PO DAILY 01/20/21
cholecalciferol (vitamin D3) 25 mcg (1,000 unit) tablet 1,000 units PO DAILY 01/20/21
latanoprost 0.005 % eye drops 1 drp BOTH EYES HS 01/20/21
zinc sulfate 50 mg zinc (220 mg) capsule 220 mg PO DAILY 01/20/21
vefaros-eauvovcwmuxjd-iyxqjqkx 250 mg-250 mg-65 mg tablet (Excedrin Migraine) 2 tab PO DAILYPRN PRN migraine 07/08/24
hydrocortisone acetate 25 mg rectal suppository 25 mg TN DAILY PRN hemorrhoids 07/08/24
levothyroxine 100 mcg tablet 100 mcg PO HS 07/08/24
mesalamine 1.2 gram tablet,delayed release 1.2 g PO AC 07/08/24
naproxen sodium 220 mg capsule (Aleve) 440 mg PO DAILYPRN PRN mild pain 07/08/24
omega 0-zic-lae-fish oil 1,000 mg (120 mg-180 mg) capsule (Fish Oil) 1 cap PO DAILY 07/08/24
therapeutic multivitamin 1 tab PO DAILY 07/08/24
calcium carbonate 500 mg PO TID 12/03/24
cyanocobalamin (vitamin B-12) 1,000 mcg sublingual tablet 1,000 mcg sublingual DAILY 12/03/24
timolol maleate 0.5 % eye drops 1 drp RIGHT EYE DAILY 12/03/24
Review of Systems
-
History Source: Patient
Constitutional: Reports Fever, Fatigue and Chills
EENT: Reports No Symptoms
Respiratory: Reports Cough
Cardiac: Reports No Symptoms
Abdomen/GI: Reports Abdominal Pain, Nausea, Diarrhea (Her baseline is diarrhea) and Anorexia; Denies Vomiting, Bloody Stools or Black Stools
: Reports No Symptoms
Musculoskeletal: Reports No Symptoms
Neurological: Reports No Symptoms
Hematologic/Lymphatic: Reports No Symptoms
Psych: Reports No Symptoms
Physical Exam
Vital Signs
Vital Signs
Temp Pulse Resp BP Pulse Ox
98.6 F 111 20 119/81 96
12/03/24 06:28 12/03/24 06:28 12/03/24 06:28 12/03/24 06:28 12/03/24 06:49
Physical Exam
General: No Apparent Distress and Comfortable
HEENT: Anicteric and PERRLA; No Moist mucous membranes
Respiratory: Clear; No Wheezes, Rales, Rhonchi or Crackles
Cardiac: S1/S2 and Regular Rhythm; No Murmur, Rub, Gallop or JVD
GI: Soft, Non Distended, Normal Bowel Sounds, Tender (Rebound tenderness in the left lower quadrant, palpable tenderness in the RUQ, RLQ) and No Hepatosplenomegaly
Musculoskeletal: No Clubbing, No Cyanosis and No Edema
Skin: Warm
Neuro: AO x 3 and No Motor Deficits
Psych: Calm
Laboratory Results
-
12/03/24 07:14
12/03/24 07:14
Laboratory Results
Total Bilirubin 1.6 mg/dl (0.2-1.3) H 12/03/24 07:14
AST 28 U/L (14-36) 12/03/24 07:14
ALT 23 U/L (0-35) 12/03/24 07:14
Alkaline Phosphatase 78 U/L (38-126) 12/03/24 07:14
Lipase 98 U/L (23-300) 12/03/24 07:14
Data Reviewed
-
Diagnostic Radiology: Image Personally Visualized and interpreted, Report Reviewed by me, Discussed with Physician and Discussed with Patient
Lab Data: Labs Reviewed by me, Discussed with Physician and Discussed with Patient
Impression/Plan
-
IMPRESSION: 69-year-old female with known history of Crohn's disease, stage 2 CKD, hypothyroidism, glaucoma, multiple small bowel resections presents to the ER for evaluation of intractable abdominal pain. Diagnosed with colitis most likely Crohn's.
PLAN:
#Acute LLQ abdominal pain-
CT abdomen showed evidence for severe colitis versus diverticulitis.
Tachycardic, leukocytosis present, afebrile, SIRS criteria met without sepsis.
Abdominal pain and leukocytosis, elevated CRP at 72, consistent with colitis.
Obtain stool cultures, C. difficile, stool for ova and parasites and stool WBC count.
Start patient empirically on IV antibiotics ciprofloxacin and metronidazole in the ER
Continue the antibiotics, continue home regimen for Crohn's colitis.
Consult GI, start the patient on IV fluids @40 cc
Appreciate GI inputs and managing the patient.
# Stage II CKD-
Serum creatinine greater than 0.9, eGFR greater than 60.
Currently stable, no evidence for BRYANT, monitor serum creatinine in the hospital.
# Hypothyroidism-
Continue home dose levothyroxine
# Glaucoma-
Continue home medication regimen
# Conditions GALLERY HOST-
SBO
PSBO
S/p resection of small bowel x 4.
# DVT prophylaxis-
Lovenox SQ.
# CODE STATUS-full code.
--- NOTE | 2024-12-03 10:41 | W.PN.UPDATE ---
Update Note
Progress Note Update
69-year-old female with Crohn's disease (on mesalamine and prednisone), thyroid cancer s/p thyroidectomy c/b iatrogenic hypothyroidism, B12 deficiency, H/O SBO s/p bowel resection x 4 with ileostomy presenting to the emergency department today with
a complaint of abdomen pain. Symptoms started roughly 4 days prior to arrival, has been persistent over that time. Not associated with nausea or vomiting though does describe the pain as severe. States she has had a low-grade fever with constant
diarrhea as well though this is chronic. Denies cardiac, genitourinary, respiratory, neurologic complaints. Tachycardic though otherwise hemodynamically stable, afebrile, on room air in the ED. Labs with WBC 11.6 and neutrophils 80.8%, CRP 72.4.
CT A/P with IV and oral contrast demonstrated advanced inflammatory changes of the sigmoid colon concerning for severe diverticulitis versus Crohn's colitis. In the ED was started on IV fluids, given 1 dose of Dilaudid, and ordered ciprofloxacin
and metronidazole.
AO x 4, appears in pain though otherwise NAD. Tachycardic and regular though otherwise benign cardiopulmonary exam. Diffuse tenderness to abdomen palpation though no peritoneal signs, reduced BS. No edema, palpable pulses, skin warm and dry. No
focal neurologic deficits
#Abdomen pain. Differentials include Crohn's flare v. Diverticulitis v. Gastroenteritis though less likely. CT A/P showed advanced inflammatory changes of the sigmoid colon. Was started on IV ciprofloxacin and metronidazole in the ED due to
allergy to penicillins. Will continue with current antibiotics for now. Continue home mesalamine and hydrocortisone for now (recent studies show lack of benefit to stopping immunosuppressive agents in context of infection, this may also be a
Crohn's flare rather than infection). Check stool cultures, C. difficile, stool calprotectin. If infection ruled out consider transitioning to IV methylprednisolone 20 mg every 8 hours for treatment of flare. Trend CBC, temperature curve, CRP.
Consult GI, may need to consider induction therapy with TNF alpha
#Leukocytosis. Possibly reactive to Crohn's flare versus chronic steroid versus GI infection. Trend CBC and temperature curve on antibiotic regimen as above
Diet -- CLD pending GI evaluation
Thromboprophylaxis -- SQ lovenox, high risk state with IBD
CODE STATUS -- Full
I have independently evaluated the patient at the bedside. I will be admitting Stacey W[facility] to [facility]. She is at high risk for worsening morbidity due to possible GI infection versus Crohn's flare. She will require intensive monitoring of
her infectious markers and inflammatory markers. She will require readjustment of her antimicrobial and anti-inflammatory regimen. I have discussed this case with the ED attending and scrap drop operator. I reviewed the case with the resident and
agree with all documentation unless otherwise specified
See residents H&P for more detail once available
[2024-12-03] MEDS: FLAGYL 500 MG 100 IV ×2 (10:48→19:41)
--- NOTE | 2024-12-03 11:12 | EDCM ---
CM reviewed chart and met with patient bedside in ED. Lives with her in 2 story home, 2 [address], full bath on first floor, full flight of steps to second floor bedroom.
Independent in ADLs, personal care and ambulation at baseline. No assistive devices, no DME.
Confirms prescription coverage.
No hx VN or SNF
PCP: Carole Lopez
Pharmacy: [facility]
Anticipate discharge home, CM will continue to follow for all discharge planning needs.
[2024-12-03] MEDS: CIPRO 400 MG 200 IV ×2 (13:11→21:20)
--- NOTE | 2024-12-03 14:24 | CON.GI ---
Consultation
-
Date/Time Consultation Requested: 12/03/2024, 11am
Date/Time Consultation Performed: 12/03/2024, 5:30pm
Requesting Provider: Dr. Leblanc (resident tiger texted me - I placed consult
Performing Provider: Dr. Carballo
Reason for Consultation: Crohn's
Medical History
Chief Complaint / HPI
Chief Complaint: abd pain
History of Present Illness:
68-year-old female past medical history of Crohn's ileitis, small bowel obstruction with resection x 3, cholecystectomy, recent hospitalization June 2024 for partial small bowel obstruction managed conservatively. She has partial small bowel
obstructions about 3 times a year. She is currently on mesalamine. Most recent colonoscopy May 2023 normal small bowel, evidence of prior jqcd-up-fzvi ileocolonic anastomosis in the cecum this was patent, normal colon, diverticulosis in the
sigmoid and descending colon.
History of 3 small bowel resections last one was 20 years ago. Never had evidence of colonic Crohn's disease. Never on biologics. Was on and off prednisone for years. Followed with [facility] before switching to Dr. Dobbs 3 years ago.
[address] November 2023 shows advanced inflammatory changes involving the sigmoid could represent severe diverticulitis. Cannot rule out Crohn's colitis.
On discussion wiht patient she has 5-6 episodes of pSBO a year. She will make herself NPO for 2 days and it will resolve. This time had no n/v (previously would have n/v) but had severe abd pain RLQ but this time radiated to left as well. No bM
for last 2 days. Typically has diarrhea 10 BM/day. Briefly reviewed Dr. Dobbs's notes tried xifaxan. Fevers at home as high as 102.9.
Past Medical History
Past Medical History: Other (crohns, hashimotos)
Past Surgical History: Other (sbrx3)
Social History
Tobacco: Non-Smoker
Alcohol: None
Drug: None
Family History
Family History: Other (strong FH of Crohn's)
Allergies / Home Medications
Allergy/AdvReac Type Severity Reaction Status Date / Time
Penicillins Allergy Hives Verified 07/08/24 07:43
�Medication �Instructions �Recorded
ascorbic acid (vitamin C) 500 mg 500 mg PO DAILY 01/20/21
tablet (Vitamin C)
cholecalciferol (vitamin D3) 25 1,000 units PO DAILY 01/20/21
mcg (1,000 unit) tablet
latanoprost 0.005 % eye drops 1 drp BOTH EYES HS 01/20/21
zinc sulfate 50 mg zinc (220 mg) 220 mg PO DAILY 01/20/21
capsule
ldxltyx-wtspxfbcljqap-prmgvlqf 250 2 tab PO DAILYPRN PRN migraine 07/08/24
mg-250 mg-65 mg tablet (Excedrin
Migraine)
hydrocortisone acetate 25 mg 25 mg OR DAILY PRN hemorrhoids 07/08/24
rectal suppository
levothyroxine 100 mcg tablet 100 mcg PO HS 07/08/24
mesalamine 1.2 gram tablet,delayed 1.2 g PO AC 07/08/24
release
naproxen sodium 220 mg capsule 440 mg PO DAILYPRN PRN mild pain 07/08/24
(Aleve)
omega 4-ebx-fgs-fish oil 1,000 mg 1 cap PO DAILY 07/08/24
(120 mg-180 mg) capsule (Fish Oil)
therapeutic multivitamin 1 tab PO DAILY 07/08/24
calcium carbonate 500 mg PO TID 12/03/24
cyanocobalamin (vitamin B-12) 1,000 mcg sublingual DAILY 12/03/24
1,000 mcg sublingual tablet
timolol maleate 0.5 % eye drops 1 drp RIGHT EYE DAILY 12/03/24
Review of Systems
-
All other systems: A 12 pt ROS was Negative except as stated above in HPI
Vital Signs
Temp Pulse Resp BP Pulse Ox
98.6 F 111 20 119/81 96
12/03/24 06:28 12/03/24 06:28 12/03/24 06:28 12/03/24 06:28 12/03/24 06:49
Physical Exam
Exam
General: Well Developed
HEENT: Normocephalic
Respiratory: Clear
Cardiac: S1/S2
GI: Non Distended and Tender
Musculoskeletal: No Clubbing
Skin: Warm
Neuro: AO x 3
Hematologic/Lymphatic: No Lymphadenopathy
Psych: Calm
Results
WBC 11.6 10^3/uL (4.8-10.8) H 12/03/24 07:14
Hgb 12.8 g/dL (12.0-16.0) 12/03/24 07:14
Hct 38.1 % (37.0-47.0) 12/03/24 07:14
MCV 90.7 fL (81.0-99.0) 12/03/24 07:14
Plt Count 202 10^3/uL (130-400) 12/03/24 07:14
Absolute Neuts (auto) 9.4 10^3/uL (1.4-6.5) H 12/03/24 07:14
Sodium 137 mmol/L (135-145) 12/03/24 07:14
Potassium 4.2 mmol/L (3.5-5.1) 12/03/24 07:14
Chloride 104 mmol/L (98-107) 12/03/24 07:14
Carbon Dioxide 26 mmol/L (22-30) 12/03/24 07:14
BUN 16 mg/dl (7-17) 12/03/24 07:14
Creatinine 0.9 mg/dL (0.6-1.0) 12/03/24 07:14
Calcium 9.2 mg/dl (8.4-10.2) 12/03/24 07:14
Total Bilirubin 1.6 mg/dl (0.2-1.3) H 12/03/24 07:14
AST 28 U/L (14-36) 12/03/24 07:14
ALT 23 U/L (0-35) 12/03/24 07:14
Alkaline Phosphatase 78 U/L (38-126) 12/03/24 07:14
Lipase 98 U/L (23-300) 12/03/24 07:14
Diagnostic Image Results:
Prior GI Procedures:
EGD:
Colonoscopy:
Assessment / Plan
-
69 yo F pmh small bowel obstructive Crohn's p/w lower abd pain found on CT to have diverticulitis.
Never had colonic Crohn's and did have diverticulosis on prior cscope so I suspect this is diverticulitis. I reviewed CT images myself and interpreted - see thickness in area of tics.
Also different from other episodes of pSBO no n/v.
Recommendations:
- clear liquid diet advance as tolerated
- antibiotics
- in regards to her chronic GI issues I will d/w Dr. Dobbs about possibly stopping her mesalamine, trial of questran for diarrhea and possible lysis of adhesions to prevent her repetitive pSBO (I reviewed scope after see no comment about
anastomotic stricture; may benefit from repeat MRE/cscope prior to surgery to ensure no Crohn's but no Crohn's on prior MRE and cscope in 2023 (these are all outpatient issues)
D/w hospitalist team
-
-
Thank you for consultation and allowing me to participate in the patient's care. Please call the solution lead GI physician during the after hours with any questions or concerns.
[2024-12-03 17:35] VITALS: BP 132/74
--- NOTE | 2024-12-03 17:35 | PTCARENOTE ---
Pt received from the Ed via stretcher. Transport was w/o incident. Pt is AAOx3, VSS, Pt is afebrile. Pt c/o abd pain rating her pain 8/10 on pain scale. Will reach out to provider for pain medication. Pt instructed on plan of care. Pt verbalized
understanding of instructions. Call daly is within reach.
[2024-12-03] MEDS: LOVENOX 40 MG SC (18:36)
[2024-12-03] MEDS: DILAUDID 0.25 MG IV (19:22)
[2024-12-03] MEDS: SYNTHROID 100 MCG PO (21:20)
[2024-12-03] MEDS: XALATAN OPHTHALMIC SOLUTION 1 DROP BOTH EYES (21:20)
[2024-12-03 23:04] VITALS: BP 110/53
[2024-12-04] MEDS: ULTRAM 50 MG PO ×2 (01:22→10:43)
[2024-12-04] MEDS: TYLENOL 650 MG PO (06:15)
[2024-12-04 07:22] LABS: Hematocrit 36.5 % (37.0-47.0); Hemoglobin 12.4 g/dL (12.0-16.0); Mean Corp Hgb Conc. 34.0 g/dL (33.0-37.0); Mean Corpuscular Volume 93.6 fL (81.0-99.0); Nucleated Red Blood Cells % 0 %; Platelet Count 228 10^3/uL (130-400); Red Cell Dist. Width 12.0 % (11.5-14.5)
[2024-12-04 07:28] LABS: Blood Urea Nitrogen 13 mg/dl (7-17); Calcium 9.4 mg/dl (8.4-10.2); Carbon Dioxide 25 mmol/L (22-30); Chloride 104 mmol/L (98-107); Estimated Creatinine Clearance 43 ml/min; Glucose 82 mg/dl (70-99); Potassium 4.0 mmol/L (3.5-5.1); Sodium 138 mmol/L (135-145); eGFR > 60.00
[2024-12-04 08:00] VITALS: BP 102/57
[2024-12-04] MEDS: FLAGYL 500 MG 100 IV ×2 (08:44→20:58)
--- NOTE | 2024-12-04 08:50 | W.PN.HOSP.TC ---
Today's Communication/Plan
-
PT/OT
N.p.o.
Continue IV fluids and IV antibiotics
Assessment / Plan
Assessment / Plan
IMPRESSION:
69-year-old female with known history of Crohn's disease (on mesalamine and prednisone), stage 2 CKD, hypothyroidism (s/p thyroidectomy for thyroid cancer), glaucoma, multiple small bowel resections presents to the ER for evaluation of intractable
abdominal pain, diarrhea and low-grade fever.
CT A/P with IV and oral contrast demonstrated advanced inflammatory changes of the sigmoid colon concerning for severe diverticulitis versus Crohn's colitis. In the ED was started on IV fluids, given 1 dose of Dilaudid, and ordered ciprofloxacin and
metronidazole.
GI on board-suspect diverticulitis, since her colon was never involved per Crohn's and diverticulosis was present on prior scope
#Abdominal pain secondary to most likely diverticulitis
Afebrile and leukocytosis resolved
Continue antibiotics-metronidazole and ciprofloxacin
Clear liquid diet, advance diet as tolerated
GI recommendations appreciated-plan to do trial of Questran for diarrhea and possible lysis of adhesions to prevent repetitive partial small bowel obstruction on outpatient basis
PT/OT-for disposition
Patient did not tolerate clear liquid diet trial-experienced nausea
Keep n.p.o.
Continue IV fluids
# Crohn's disease
Continue mesalamine and hydrocortisone
Follow-up with GI on outpatient basis
#Leukocytosis
Reactive to Crohn's treatment/diverticulitis
Trending down
#Iatrogenic hypothyroidism
Continue levothyroxine
#Glaucoma
Continue home medications
#DVT prophylaxis-enoxaparin
#CODE STATUS-full code
Anticipated Discharge: 24 - 48 hours
Subjective/Interval History
-
Date of Service: December 04, 2024
Patient seen and examined at bedside
Reports significant improvement in pain, reports an uneventful night, currently rates pain 3/10
Has been walking around without any difficulty
Encouraged to eat something this morning
Objective Data
-
Labs:
Laboratory Results
12/04/24
06:31
WBC 8.0
Hgb 12.4
Hct 36.5 L
Plt Count 228
Sodium 138
Potassium 4.0
Chloride 104
Carbon Dioxide 25
BUN 13
Creatinine 0.9
Glucose 82
Calcium 9.4
Vital Signs:
Vital Signs
Temp Pulse Resp BP Pulse Ox
98 F 80 15 102/57 99
12/04/24 08:00 12/04/24 08:00 12/04/24 08:00 12/04/24 08:00 12/04/24 08:00
I&O
12/03/24 12/04/24 12/05/24
06:59 06:59 06:59
Intake Total 480 / 480
Balance 480 / 480
Review of Systems
-
Abdomen/GI: Reports Abdominal Pain
Physical Exam
-
General: No Apparent Distress, Comfortable and Conversant
HEENT: Normocephalic, Atraumatic and Moist Mucous Membranes
Respiratory: Clear to Auscultation; Negative Wheezes, Rales or Rhonchi
Cardiac: Regular Rhythm and S1/S2
GI: Soft, Nondistended, Normal Bowel Sounds and Tender (Mildly tender in left lower quadrant)
Musculoskeletal: No Clubbing, No Cyanosis and No Edema
Skin: Warm and Dry
Neuro: Awake, AO x 3 and No Motor Deficits
Psych: Calm
[2024-12-04 10:05] VITALS: BP 142/72; BP 142/77; PULSE 71; PULSE 85; O2SAT 96
[2024-12-04] MEDS: CIPRO 400 MG 200 IV ×2 (10:08→19:46)
--- NOTE | 2024-12-04 10:14 | PTOTSP ---
Pt currently at Mod I/I level with basic self care, transfers and functional mobility in room and bathroom pushing IV pole. Reports no pain. States she's been using the bathroom several times on her own. No further skilled OT indicated at this time.
Will sign off.
--- NOTE | 2024-12-04 10:19 | W.PN.GI.CBS2 ---
Addendum entered and electronically signed by Emmett Carballo MD 12/04/24 14:06:
I saw and examined the patient.
The CASE BRIEFER or PA's note was reviewed and I agree with the note.
Comment: 69 yo F pmh small bowel obstructive Crohn's p/w lower abd pain found on CT to have diverticulitis.
Never had colonic Crohn's and did have diverticulosis on prior cscope so I suspect this is diverticulitis. I reviewed CT images myself and interpreted - see thickness in area of tics.
Now with n/v - no pSBO seen on imaging but possibly could have recurrence
Recommendations:
- clear liquid diet advance as tolerated
- antibiotics
- if ongoing n/v t/c NGT
Original Note:
Today's Communication / Plan
-
Etiology of symptoms with concern for diverticulitis with hx crohns or PSBO in differential
not eating much clears as did not like diet-- will advance to low residue
cont abx
OP follow up with Dr. Dobbs - pt scheduled 12/21 at 9:30 AM- added to discharge
- Per Dr. Carballo in regards to her chronic GI issues to review with Dr. Dobbs -- message sent in [facility] about possibly stopping her mesalamine, trial of questran for diarrhea and possible lysis of adhesions to prevent her repetitive pSBO (I
reviewed scope after see no comment about anastomotic stricture; may benefit from repeat MRE/cscope prior to surgery to ensure no Crohn's but no Crohn's on prior MRE and cscope in 2023 (these are all outpatient issues)
Assessment / Plan
-
69 yo F pmh small bowel obstructive Crohn's p/w lower abd pain found on CT to have diverticulitis.Never had colonic Crohn's with suspected diverticulitis.
-diverticulitis
-leukocytosis on admission now resolved
-hx SB crohns with multiple resections in past, prior ileostomy
other med problems:
-CKD
-hypothyroidism
-prior devorah/appe
Recommendations:
Etiology of symptoms with concern for diverticulitis with hx crohns or PSBO in differential
not eating much clears as did not like diet-- will advance to low residue
cont abx
OP follow up with Dr. Dobbs - pt scheduled 12/21 at 9:30 AM- added to discharge
- Per Dr. Carballo in regards to her chronic GI issues to review with Dr. Dobbs -- message sent in [facility] about possibly stopping her mesalamine, trial of questran for diarrhea and possible lysis of adhesions to prevent her repetitive pSBO (I
reviewed scope after see no comment about anastomotic stricture; may benefit from repeat MRE/cscope prior to surgery to ensure no Crohn's but no Crohn's on prior MRE and cscope in 2023 (these are all outpatient issues)
Subjective
Subjective
Date of Service: December 04, 2024
on clear diet but has not taking much with diet selections, feeling better
Objective
Data Reviewed
Laboratory Data:
Laboratory Results
12/04/24 06:31
12/04/24 06:31
Laboratory Results
Total Bilirubin 1.6 mg/dl (0.2-1.3) H 12/03/24 07:14
AST 28 U/L (14-36) 12/03/24 07:14
ALT 23 U/L (0-35) 12/03/24 07:14
Alkaline Phosphatase 78 U/L (38-126) 12/03/24 07:14
Lipase 98 U/L (23-300) 12/03/24 07:14
Vital Signs and I&O:
Vital Signs
Temp Pulse Resp BP Pulse Ox
98 F 80 15 102/57 99
12/04/24 08:00 12/04/24 08:00 12/04/24 08:00 12/04/24 08:00 12/04/24 08:00
I&O
12/03/24 12/04/2425
06:59 06:59 06:59
Intake Total 480 / 480
Balance 480 / 480
Physical Exam
Physical Exam
HEENT: Anicteric
Cardiology: Normal Sinus Rhythm
Pulmonary: Clear
GI: Soft, Non Distended and Tender (minimal lower abdomen )
Extremities: No Edema
Neuro: Non Focal
--- NOTE | 2024-12-04 13:10 | W.PN.UPDATE ---
Update Note
Progress Note Update
Diverticulitis likely less likely Crohn's flare or partial small bowel obstruction
Has right lower quadrant pain on examination
Currently on IV antibiotics with Cipro Flagyl
IV fluids
Did not tolerate Clear liquid diet as she had some apple juice which caused her abdominal pain to be worse
Will make n.p.o.
IV fluids
Analgesics
Antiemetics
Hypothyroidism
Continue levothyroxine
Read, reviewed, and agree. See same day progress note for additional details. Time spent reviewing records in EMR, med rec, consults, notes, d/w consultants, nursing, family, and CM
[2024-12-04] MEDS: ZOFRAN 4 MG IV ×2 (14:30→20:58)
--- NOTE | 2024-12-04 14:53 | CM ---
Did not tolerate clear liquid diet, increased abdominal pain, now NPO. IV/Cipro and IV/Flagyl. Discharge POC: No therapy needs. Anticipate home with no needs.
[2024-12-04 16:05] VITALS: BP 130/78
[2024-12-04] MEDS: NSS 1000 IV (16:54)
[2024-12-04] MEDS: LOVENOX 30 MG SC (16:54)
[2024-12-04] MEDS: SYNTHROID 100 MCG PO (21:01)
[2024-12-04] MEDS: XALATAN OPHTHALMIC SOLUTION 1 DROP BOTH EYES (21:04)
--- NOTE | 2024-12-04 22:13 | PTCARENOTE ---
Pt reports significant nausea post IV ABX administration. PRN Zofran administered as ordered. IVF infusing as ordered. Will continue to monitor.
[2024-12-04 23:01] VITALS: BP 125/74
[2024-12-05 06:47] LABS: Hematocrit 29.9 % (37.0-47.0); Hemoglobin 10.3 g/dL (12.0-16.0); Mean Corp Hgb Conc. 34.4 g/dL (33.0-37.0); Mean Corpuscular Volume 90.3 fL (81.0-99.0); Nucleated Red Blood Cells % 0 %; Platelet Count 188 10^3/uL (130-400); Red Cell Dist. Width 11.5 % (11.5-14.5)
[2024-12-05 07:04] LABS: Blood Urea Nitrogen 11 mg/dl (7-17); Calcium 8.8 mg/dl (8.4-10.2); Carbon Dioxide 22 mmol/L (22-30); Chloride 106 mmol/L (98-107); Estimated Creatinine Clearance 55 ml/min; Glucose 81 mg/dl (70-99); Potassium 3.6 mmol/L (3.5-5.1); Sodium 137 mmol/L (135-145); eGFR > 60.00
[2024-12-05 07:20] VITALS: BP 133/73
--- NOTE | 2024-12-05 07:29 | W.PN.HOSP.TC ---
Addendum entered and electronically signed by Abhijit Ross MD 12/06/24 17:16:
See update note
Read, reviewed, and agree. See same day progress note for additional details. Time spent reviewing records in EMR, med rec, consults, notes, d/w consultants, nursing, family, and CM
Original Note:
Today's Communication/Plan
-
Advance diet as tolerated
Assessment / Plan
Assessment / Plan
IMPRESSION:
69-year-old female with known history of Crohn's disease (on mesalamine and prednisone), stage 2 CKD, hypothyroidism (s/p thyroidectomy for thyroid cancer), glaucoma, multiple small bowel resections presents to the ER for evaluation of intractable
abdominal pain, diarrhea and low-grade fever.
CT A/P with IV and oral contrast demonstrated advanced inflammatory changes of the sigmoid colon concerning for severe diverticulitis versus Crohn's colitis. In the ED was started on IV fluids, given 1 dose of Dilaudid, and ordered ciprofloxacin and
metronidazole.
GI on board-suspect diverticulitis, since her colon was never involved per Crohn's and diverticulosis was present on prior scope
#Abdominal pain secondary to most likely diverticulitis
Afebrile and leukocytosis resolved
Continue antibiotics-metronidazole and ciprofloxacin
Clear liquid diet, advance diet as tolerated
GI recommendations appreciated-plan to do trial of Questran for diarrhea and possible lysis of adhesions to prevent repetitive partial small bowel obstruction on outpatient basis
PT/OT-No need of skilled rehab
Clear liquid diet trial today-If tolerates advance diet and plan to discharge with oral antibiotics
# Crohn's disease
Continue mesalamine and hydrocortisone
Follow-up with GI on outpatient basis
#Leukocytosis
Reactive to Crohn's treatment/diverticulitis
Trending down
#Iatrogenic hypothyroidism
Continue levothyroxine
#Glaucoma
Continue home medications
#DVT prophylaxis-enoxaparin
#CODE STATUS-full code
Anticipated Discharge: 24 - 48 hours
Subjective/Interval History
-
Date of Service: December 05, 2024
Patient seen and examined at bedside
Feeling improved, relates nausea to Flagyl, wants to try clear liquid diet
Abdominal pain getting better, tender on palpation
Objective Data
-
Labs:
Laboratory Results
12/05/24
06:19
WBC 5.4
Hgb 10.3 L
Hct 29.9 L
Plt Count 188
Sodium 137
Potassium 3.6
Chloride 106
Carbon Dioxide 22
BUN 11
Creatinine 0.7
Glucose 81
Calcium 8.8
Vital Signs:
Vital Signs
Temp Pulse Resp BP Pulse Ox
98.4 F 75 16 125/74 99
12/04/24 23:01 12/04/24 23:01 12/04/24 23:01 12/04/24 23:01 12/04/24 23:01
I&O
12/04/24 12/05/24 12/06/24
06:59 06:59 06:59
Intake Total 480 / 480 1250 / 1250
Balance 480 / 480 1250 / 1250
Review of Systems
-
All other systems: Reviewed and negative
Physical Exam
-
General: No Apparent Distress, Cachectic and Other (Frail appearing,lying comfortably in bed)
HEENT: Moist Mucous Membranes, Anicteric and [place] Conjunctivae
Respiratory: Clear to Auscultation
Cardiac: Regular Rhythm and S1/S2
GI: Soft, Normal Bowel Sounds and Tender (in left lower quadrant)
Musculoskeletal: No Clubbing, No Cyanosis and No Edema
Neuro: Awake, AO x 3 and Nonfocal/Grossly Intact
Psych: Calm
[2024-12-05] MEDS: NSS 1000 IV (08:22)
[2024-12-05] MEDS: CIPRO 400 MG 200 IV (08:23)
[2024-12-05] MEDS: FLAGYL 500 MG 100 IV (10:00)
--- NOTE | 2024-12-05 12:17 | W.PN.GI.CBS2 ---
Today's Communication / Plan
-
attempt clears and advance as tolerated
Assessment / Plan
-
69 yo F pmh small bowel obstructive Crohn's p/w lower abd pain found on CT to have diverticulitis.Never had colonic Crohn's with suspected diverticulitis.
Recommendations:
continue antibiotics
attempt clears and advance as tolerated
OP follow up with Dr. Dobbs - pt scheduled 12/21 at 9:30 AM- added to discharge
Subjective
Subjective
Date of Service: December 05, 2024
Pt with improved LLQ discomfort but still present
Objective
Data Reviewed
Laboratory Data:
Laboratory Results
12/05/24 06:19
12/05/24 06:19
Laboratory Results
Total Bilirubin 1.6 mg/dl (0.2-1.3) H 12/03/24 07:14
AST 28 U/L (14-36) 12/03/24 07:14
ALT 23 U/L (0-35) 12/03/24 07:14
Alkaline Phosphatase 78 U/L (38-126) 12/03/24 07:14
Lipase 98 U/L (23-300) 12/03/24 07:14
Vital Signs and I&O:
Vital Signs
Temp Pulse Resp BP Pulse Ox
98.8 F 90 15 133/73 97
12/05/24 07:20 12/05/24 07:20 12/05/24 07:20 12/05/24 07:20 12/05/24 07:20
I&O
12/04/24 12/05/24 12/06/24
06:59 06:59 06:59
Intake Total 480 / 480 1250 / 1250
Balance 480 / 480 1250 / 1250
Physical Exam
Physical Exam
Cardiology: S1 and S2
GI: Soft and Tender (righy lower)
Neuro: Non Focal
--- NOTE | 2024-12-05 12:52 | W.PN.UPDATE ---
Update Note
Progress Note Update
Diverticulitis likely less likely Crohn's flare or partial small bowel obstruction
Has right lower quadrant pain on examination
Currently on IV antibiotics with Cipro Flagyl
IV fluids
Analgesics
Antiemetics
CLD ADAT to low res
Hypothyroidism
Continue levothyroxine
If able to toelrate diet then plan to dc home with outpatient GI follow up
Read, reviewed, and agree. See same day progress note for additional details. Time spent reviewing records in EMR, med rec, consults, notes, d/w consultants, nursing, family, and CM
--- NOTE | 2024-12-05 14:37 | CM ---
CM following re: discharge planning.
Reviewed pt's chart, met with pt,.
Per MD, If pt able to tolerate diet then plan to dc home with outpatient GI follow up
PT and OT evaluations noted - pt has no skilled PT/OT needs, independent with functional ability.
Pt lives with her in 2 story home and pt is independent in all areas MEMBERSHIP COUNSELOR.
D/c plan: home no needs. to transport
[2024-12-05 15:19] VITALS: BP 124/66
--- NOTE | 2024-12-05 17:12 | W.DCSUMMARY ---
Discharge Summary
Discharge Data
Date of Admission: 12/03/24
Date of Discharge: 12/05/24
-
Pending Results: No
Hospital Course
Discharging Physician :
Abhijit Ross
Disposition :
Home
Primary care physician :
Jessica Rob
Principal Discharge diagnosis :
Diverticulitis
Chronic Discharge diagnosis :
Crohn's disease on mesalamine multiple bowel resections x 4 greater than 20 years ago history of ileostomy 30 years ago secondary to Crohn's bowel obstructions 6 to 10/year hypothyroidism
History multiple bowel obstructions-bowel resections X4 >20 years ago Right lower quadrant ileostomy 30 years ago due to Crohn's disease Cholecystectomy Appendectomy secondary to rupture section-linear x 1 emergent, 2 transverse
Hospital Course :
69-year-old female with known history of Crohn's disease (on mesalamine and prednisone), stage 2 CKD, hypothyroidism (s/p thyroidectomy for thyroid cancer), glaucoma, multiple small bowel resections presents to the ER for evaluation of intractable
abdominal pain, diarrhea and low-grade fever.
CT A/P with IV and oral contrast demonstrated advanced inflammatory changes of the sigmoid colon concerning for severe diverticulitis versus Crohn's colitis. In the ED, was started on IV fluids, given 1 dose of Dilaudid, and ordered ciprofloxacin
and metronidazole.
GI consulted, who suggested that since her colon was never involved by Crohn's it is most likely diverticulitis since she had diverticulosis on her last colonoscopy
Symptoms were treated with bowel rest, pain management, IV fluids and IV antibiotics-leukocytosis resolved, fever resolved
When patient felt ready, clear liquid diet was introduced and was slowly advanced to low residue diet
Outpatient follow-up with Dr. Dobbs-scheduled 12/21-GI plans to recommend Questran for diarrhea and possible lysis of adhesions to prevent repetitive partial bowel obstructions
Continue home regimen for Crohn's disease, hypothyroidism, glaucoma.
Important imaging findings :
CT abdomen/pelvis (12/03/2024)
IMPRESSION:
Advanced inflammatory changes involving the sigmoid colon. This could represent severe diverticulitis. However, given the history of Crohn's disease, the possibility of Crohn's colitis cannot be excluded. No perforation or abscess.
Discharge Plan
-
Patient Disposition: Home (Routine Discharge)
Discharge Diagnosis/Procedures: Acute diverticulitis
Condition: Fair
Diet: As tolerated and Low Residue
Activity: As tolerated
Driving Restrictions: As prior to admission
Bathing Restrictions: OK to Shower
Referrals:
Carole Lopez MD [Family Provider, Internal Medicine] - in less than 1 week
Marisela Dobbs MD [Active, Gastroenterology] - 12/21/24 9:30 am
Referral Note: follow up as scheduled
Prescriptions:
New
ciprofloxacin HCl [Cipro] 500 mg tablet
500 mg PO BID 7 Days Qty: 14 0RF
metronidazole 500 mg tablet
500 mg PO BID 7 Days Qty: 14 0RF
ondansetron HCl 4 mg tablet
4 mg PO HS PRN (Reason: nausea and vomiting) 5 Days Qty: 10 0RF
Continued
latanoprost 1 DROP drops
1 drp BOTH EYES HS
ascorbic acid (vitamin C) [Vitamin C] 500 MG tablet
500 mg PO DAILY
zinc sulfate 220 MG capsule
220 mg PO DAILY
cholecalciferol (vitamin D3) 1,000 UNITS tablet
1,000 units PO DAILY
therapeutic multivitamin Tablet
1 tab PO DAILY
hydrocortisone acetate 25 mg suppository
25 mg [place] DAILY PRN (Reason: hemorrhoids)
levothyroxine 100 mcg Tablet
100 mcg PO HS
htjgcdx-ibhmhxemvzqzr-nfwyjxbf [Excedrin Migraine] 250-250-65 mg Tablet
2 tab PO DAILYPRN PRN (Reason: migraine)
mesalamine 1.2 gram tablet,delayed release (DR/EC)
1.2 g PO AC
omega 3-nvb-rjt-fish oil [Fish Oil] 1,000 (120-180) mg Capsule
1 cap PO DAILY
naproxen sodium [Aleve] 220 mg Capsule
440 mg PO DAILYPRN PRN (Reason: mild pain)
calcium carbonate 500 mg calcium (1,250 mg) Tablet
500 mg PO TID
cyanocobalamin (vitamin B-12) 1,000 mcg Tablet, Sublingual
1,000 mcg SUBLINGUAL DAILY
timolol maleate 0.5 % drops
1 drp RIGHT EYE DAILY
Discharge Orders:
Discharge Patient (As Directed); Ordered 12/05/24
Ordered By: Telly Delong
Discharge Date and Time
Print Language: OCCITAN
== END 2024-12-05 17:13 | disposition home or self-care (01) | DRG 392 ==
LOC: 2 SOUTH 10:38
PROVIDERS: Student in an Organized Health Care Education/Training Program; ADMITTING PHYSICIAN Internal Medicine; ATTENDING PHYSICIAN Hospitalist; CONSULT PHYSICIAN Internal Medicine Gastroenterology; EMERGENCY PHYSICIAN Emergency Medicine; FAMILY PHYSICIAN Internal Medicine
DX: K57.20 Diverticulitis of large intestine with perforation and abscess without bleeding (principal); K50.812 Crohn's disease of both small and large intestine with intestinal obstruction; Z93.2 Ileostomy status; E89.0 Postprocedural hypothyroidism; Z88.0 Allergy status to penicillin; Z79.890 Hormone replacement therapy; G43.909 Migraine, unspecified, not intractable, without status migrainosus; Z90.49 Acquired absence of other specified parts of digestive tract; N18.2 Chronic kidney disease, stage 2 (mild); Z79.899 Other long term (current) drug therapy
CPT/HCPCS: 74177; 80048; 80053; 83690; 85025; 86140; 96361; 96374; 96375; 97161; 97165; 99285; Q9967